=== PATIENT | male | born 1955 | race African-American/Black ===

== ENCOUNTER 2017-02-23 04:58 | Emergency (ER) | payer OTHER ==
[~2017-02-23] VITALS: Ht 167.6 cm; Wt 72.6 kg
[~2017-02-23 04:58] MED LIST: AMOX500C2 PO; HYDR118S10 PO; TRAM50TA2 PO
[2017-02-23] MEDS ORDERED: methylPREDNISolone 125 MG (Solu-MEDROL) VIAL IM STA (05:16)
[2017-02-23] MEDS ORDERED: CEFD300C3 PO (05:21)
[2017-02-23] MEDS ORDERED: METH4TAB PO (05:21)
--- NOTE | 2017-02-23 05:22 | ED EENT ---
History of Present Illness General Chief Complaint: Cough/Cold/Flu Symptoms Stated Complaint: FEVER Nursing Triage Note: SWEATY, CHILLS, RIGHT EAR PAIN Source: patient History of Present Illness Time seen by provider: 05:11 Initial Comments PT C/O RIGHT EAR PAIN -BEGAN THIS EVENING HAS HAD SUBJECTIVE CHILLS AND SWEATS/FEELING HOT NO OTHER SYMPTOMS NO HISTORY OF SIMILAR PCP--ALL MEDICAL CARE IS THROUGH CT IN [place] Allergies and Home Medications Allergies Coded Allergies: No Known Drug Allergies (Unverified , 12/27/13) Home Medications No Active Prescriptions or Reported Meds Review of Systems Constitutional: see HPI, chills, fever Eyes: No Symptoms Reported Ears: See HPI, Pain Nose: no symptoms reported Mouth: no symptoms reported Throat: no symptoms reported Respiratory: no symptoms reported Cardiovascular: no symptoms reported Gastrointestinal: no symptoms reported Musculoskeletal: no symptoms reported Skin: no symptoms reported Neurological: No Symptoms Reported Hematologic/Lymphatic: No Symptoms Reported Immunological/Allergic: no symptoms reported Past Nhutahd-Isueze-Npsqcc Hx Patient Social History Alcohol Use: Denies Use Recreational Drug Use: No Smoking Status: Former Smoker 2nd Hand Smoke Exposure: Yes Recent Foreign Travel: No Contact w/Someone Who Travel: No Recent Infectious Disease Expo: No Recent Hopitalizations: No Immunizations Up To Date Tetanus Booster (TDap): More than 5yrs Seasonal Allergies Seasonal Allergies: No Surgeries History of Surgeries: Yes (HERNIA) Surgeries: Abdominal Respiratory History of Respiratory Disorde: No Cardiovascular History of Cardiac Disorders: Yes Cardiac Disorders: Hypertension Neurological History of Neurological Disord: No Reproductive System Hx Reproductive Disorders: No Sexually Transmitted Disease: No Genitourinary History of Genitourinary Disor: No Gastrointestinal History of Gastrointestinal Di: No Musculoskeletal History of Musculoskeletal Dis: Yes Musculoskeletal Disorders: Arthritis Endocrine History of Endocrine Disorders: No HEENT History of HEENT Disorders: No Cancer History of Cancer: No Psychosocial History of Psychiatric Problem: No Integumentary History of Skin or Integumenta: No Blood Transfusions History of Blood Disorders: No Physical Exam Vital Signs Vital Sign - Last 12Hours 02/23/17 05:07 Temp 97.1 Pulse 106 Resp 18 B/P (MAP) 159/92 Pulse Ox 97 O2 Delivery Room Air General Appearance: WD/WN, no apparent distress Eyes: bilateral eye normal inspection, bilateral eye PERRL, bilateral eye EOMI Ears: right ear TM dull, right ear TM red, right ear other (EFFUSION), left ear TM normal, bilateral ear auricle normal, bilateral ear canal normal Nose: normal inspection Mouth/Throat: normal mouth inspection, pharynx normal Neck: non-tender, full range of motion, supple, normal inspection, No lymphadenopathy (R), No lymphadenopathy (L) Cardiovascular: regular rate, rhythm, no murmur Respiratory: normal breath sounds, no respiratory distress, no accessory muscle use Neurologic/Psychiatric: senior advisory II-XII nml as tested, no motor/sensory deficits, alert, normal mood/affect, oriented x 3 Skin: normal color, warm/dry Progress/Results/Core Measures Results/Orders My Orders Orders - MIKE RMA DO Rocephin 1000mg Im (02/23/17 05:30) Methylprednisolone Sod Succ (Solu-Medrol (02/23/17 05:16) Lidocaine 1% Injection (Xylocaine 1% Inj (02/23/17 05:30) Vital Signs/I&O Vital Sign - Last 12Hours 02/23/17 05:07 Temp 97.1 Pulse 106 Resp 18 B/P (MAP) 159/92 Pulse Ox 97 O2 Delivery Room Air Blood Pressure Mean: 114 Departure Impression Impression: Primary Impression: Right otitis media with effusion Disposition: HOME, SELF-CARE Condition: Stable Departure-Patient Inst. Referrals: NO,LOCAL PHYSICIAN (PCP/Family) Primary Care Physician Patient Instructions: Ear Infections (Otitis Media) (DC), Serous Otitis Media ( DC) Add. Discharge Instructions: TYLENOL AND MOTRIN NEEDED FOR PAIN OR FEVER LOTS OF CLEAR LIQUIDS CLARITIN OR ZYRTEC FOR FLUID IN EARS FOLLOW UP WITH DRJovita OF CHOICE IN 2-3 DAYS IF NO BETTER All discharge instructions reviewed with patient and/or family. Voiced understanding. Scripts Methylprednisolone (Medrol) 4 Mg Tab.ds.pk 4 MG PO UD, #1 PKG Prov: MIKE RAM DO 02/23/17 Cefdinir (Cefdinir) 300 Mg Capsule 300 MG PO BID for FOR INFECTION, #20 CAP Prov: MIKE RAM DO 02/23/17 MIKE RAM DO Feb 23, 2017 05:22
[2017-02-23] MEDS ORDERED: cefTRIAXone 1 GM (ROCEPHIN) VIAL IM ONE (05:30)
[2017-02-23] MEDS ORDERED: LIDOCAINE 1% INJ 20 ML (XYLOCAINE) VIAL INJ ONE (05:30)
[2017-02-23 05:36] VITALS: BP 159/92
== END 2017-02-23 05:36 | disposition home or self-care (01) ==
LOC: EDUNIT# 04:58 → ER 04:59
DX: H65.91 Unspecified nonsuppurative otitis media, right ear (principal); I10 Essential (primary) hypertension; M19.90 Unspecified osteoarthritis, unspecified site; Z87.891 Personal history of nicotine dependence; Z87.19 Personal history of other diseases of the digestive system
CPT/HCPCS: 99284

== ENCOUNTER 2017-02-26 19:05 | Emergency (ER) | payer OTHER ==
[~2017-02-26] VITALS: Ht 167.6 cm; Wt 74.8 kg
[~2017-02-26 19:05] MED LIST changes: +CEFD300C3 PO; +METH4TAB PO
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
[2017-02-26 19:45] LABS: BASOPHILS % (AUTO) 0 % (0-10); EOSINOPHILS # (AUTO) 0.4 10^3/uL (0.0-0.3); EOSINOPHILS % (AUTO) 3 % (0-10); LYMPHOCYTES # (AUTO) 1.2 X 10^3 (1.0-4.0); LYMPHOCYTES % (AUTO) 8 % (12-44); MEAN CORPUSCULAR HEMOGLOBIN 30 PG (25-34); MEAN CORPUSCULAR HGB CONC 34 G/DL (32-36); MEAN CORPUSCULAR VOLUME 88 FL (80-99); MEAN PLATELET VOLUME 10.8 FL (7.4-10.4); MONOCYTES # (AUTO) 0.5 X 10^3 (0.0-1.0); MONOCYTES % (AUTO) 4 % (0-12); NEUTROPHILS % (AUTO) 85 % (42-75); PLATELET COUNT 267 10^3/uL (130-400); RED BLOOD COUNT 5.26 10^6/uL (4.35-5.85); WHITE BLOOD COUNT 14.2 10^3/uL (4.3-11.0)
--- NOTE | 2017-02-26 19:47 | ED Respiratory ---
General Chief Complaint: Fever-Adult/Adol Stated Complaint: FEVER,CHILLS Source: patient, spouse Exam Limitations: no limitations History of Present Illness Time seen by provider: 19:40 Initial Comments patient presents to ER by private 8 days ago he's was at the [facility] being evaluated for a knee replacement. 2 days after that he started coming down some chills and headaches and ear pain. He presented 3 days ago to the ER and was evaluated and found to have ear infection in his right ear and was put on omnicef as well as steroids. Patient stated the steroids were making his stomach hurt so he stopped taking those yesterday as well as she took the antibiotics until today but doesn't feel it helped him at all he feels just as bad now as he did 3 days ago when he was evaluated in the ER. He also started experiencing a cough with small flecks of bright red blood in the mucus and phlegm that he got up. He has a history of hepatitis C. he has been prescribed hypertension meds but does not take any medicines at this time. He does not feel he needs anything. He took Tylenol 2 hours prior to arrival. He has malaise and body aches. Allergies and Home Medications Allergies Coded Allergies: No Known Drug Allergies (Unverified , 12/27/13) Home Medications Amoxicillin/Potassium Clav 1 Each Tablet, 1 EACH PO BID for 7 Days, #14 Ref 0 Prescribed by: SANDOVAL HUYNH on 02/26/172106 Azithromycin 250 Mg Tablet, 250 MG PO DAILY, #4 Ref 0 Prescribed by: SANDOVAL HUYNH on 02/26/172106 Cefdinir 300 Mg Capsule, 300 MG PO BID, #20 Prescribed by: MIKE RAM on 02/23/17 0521 Methylprednisolone 4 Mg Tab.ds.pk, 4 MG PO UD, #1 Prescribed by: MIKE RAM on 02/23/17 0521 Multivitamin 1 Each Tablet, 1 EACH PO DAILY, (Reported) [B/P pill from [place]] , (Reported) Constitutional: chills, diaphoresis, No dizziness, fever, malaise, No weakness , No weight gain, No weight loss EENTM: ear pain, No ear discharge, No hearing loss, No eye pain, No dental problems, No hoarseness, No mouth pain, No mouth swelling, No nose congestion, No nose pain, No throat pain, No throat swelling Respiratory: cough, hemoptysis, No orthopnea, phlegm, short of breath, No wheezing Cardiovascular: No chest pain, No edema Gastrointestinal: No abdominal pain, No constipation, No diarrhea, No nausea, No vomiting Genitourinary: No discharge, No dysuria Musculoskeletal: No back pain, No joint pain Skin: No pruritus, No rash Psychiatric/Neurological: Headache, Denies Numbness, Denies Paresthesia Past Zpuazig-Ahaoti-Qrxgkn Hx Patient Social History Alcohol Use: Rarely Uses Recreational Drug Use: No Smoking Status: Current Someday Smoker Type Used: Cigarettes (0.25 ppd) 2nd Hand Smoke Exposure: Yes Recent Foreign Travel: No Contact w/Someone Who Travel: No Recent Hopitalizations: No Immunizations Up To Date Tetanus Booster (TDap): More than 5yrs Seasonal Allergies Seasonal Allergies: No Surgeries History of Surgeries: Yes (HERNIA) Surgeries: Abdominal Respiratory History of Respiratory Disorde: No Cardiovascular History of Cardiac Disorders: Yes Cardiac Disorders: Hypertension Neurological History of Neurological Disord: No Reproductive System Hx Reproductive Disorders: No Sexually Transmitted Disease: No Genitourinary History of Genitourinary Disor: No Gastrointestinal History of Gastrointestinal Di: No Musculoskeletal History of Musculoskeletal Dis: Yes Musculoskeletal Disorders: Arthritis Endocrine History of Endocrine Disorders: No HEENT History of HEENT Disorders: No Cancer History of Cancer: No Psychosocial History of Psychiatric Problem: No Integumentary History of Skin or Integumenta: No Blood Transfusions History of Blood Disorders: No Physical Exam Vital Signs Vital Sign - Last 12Hours 02/26/17 19:08 Temp 97.7 Pulse 113 Resp 20 B/P (MAP) 129/81 Pulse Ox 93 O2 Delivery Room Air Capillary Refill : General Appearance: WD/WN, mild distress Eyes: Bilateral Eye Normal Inspection, Bilateral Eye PERRL, Bilateral Eye EOMI HEENT: PERRL/EOMI, pharynx normal, TM abnormal (R) (Mild injection, dull TM) Neck: non-tender, full range of motion, supple, normal inspection Respiratory: chest non-tender, lungs clear, normal breath sounds, no respiratory distress, no accessory muscle use Cardiovascular: normal peripheral pulses, regular rate, rhythm, no edema Gastrointestinal: normal bowel sounds, soft, No distended, No rebound, tenderness (Right upper quadrant with positive Pascal sign), hepatomegaly Extremities: non-tender, normal inspection, no pedal edema, no calf tenderness , normal capillary refill Neurologic/Psychiatric: alert, oriented x 3 Skin: normal color, warm/dry Focused Exam Evaluation Lactate Level Laboratory Tests 02/26/17 19:30: Lactic Acid Level 1.19 Lactic Acid Level Laboratory Tests Test 02/26/17 19:30 Lactic Acid Level 1.19 MMOL/L (0.50-2.00) Progress/Results/Core Measures Suspected Sepsis SIRS Temperature: Pulse: Respiratory Rate: Laboratory Tests 02/26/17 19:30: White Blood Count 14.2H Blood Pressure / Mean: Laboratory Tests 02/26/17 19:30: Lactic Acid Level 1.19 Laboratory Tests 02/26/17 19:30: Creatinine 0.98, Platelet Count 267, Total Bilirubin 0.6 Results/Orders Lab Results Laboratory Tests Test 02/26/17 19:30 Range/Units White Blood Count 14.2 H 4.3-11.0 10^3/uL Red Blood Count 5.26 4.35-5.85 10^6/uL Hemoglobin 15.7 13.3-17.7 G/DL Hematocrit 47 40-54 % Mean Corpuscular Volume 88 80-99 FL Mean Corpuscular Hemoglobin 30 25-34 PG Mean Corpuscular Hemoglobin Concent 34 32-36 G/DL Red Cell Distribution Width 13.0 10.0-14.5 % Platelet Count 267 130-400 10^3/uL Mean Platelet Volume 10.8 H 7.4-10.4 FL Neutrophils (%) (Auto) 85 H 42-75 % Lymphocytes (%) (Auto) 8 L 12-44 % Monocytes (%) (Auto) 4 0-12 % Eosinophils (%) (Auto) 3 0-10 % Basophils (%) (Auto) 0 0-10 % Neutrophils # (Auto) 12.0 H 1.8-7.8 X 10^3 Lymphocytes # (Auto) 1.2 1.0-4.0 X 10^3 Monocytes # (Auto) 0.5 0.0-1.0 X 10^3 Eosinophils # (Auto) 0.4 H 0.0-0.3 10^3/uL Basophils # (Auto) 0.0 0.0-0.1 10^3/uL Neutrophils % (Manual) 80 % Lymphocytes % (Manual) 13 % Monocytes % (Manual) 0 % Eosinophils % (Manual) 2 % Basophils % (Manual) 0 % Band Neutrophils 5 % Blood Morphology Comment NORMAL Sodium Level 140 135-145 MMOL/L Potassium Level 3.7 3.6-5.0 MMOL/L Chloride Level 99 98-107 MMOL/L Carbon Dioxide Level 29 21-32 MMOL/L Anion Gap 12 5-14 MMOL/L Blood Urea Nitrogen 13 7-18 MG/DL Creatinine 0.98 0.60-1.30 MG/DL Estimat Glomerular Filtration Rate > 60 BUN/Creatinine Ratio 13 Glucose Level 162 H 70-105 MG/DL Lactic Acid Level 1.19 0.50-2.00 MMOL/L Calcium Level 9.7 8.5-10.1 MG/DL Total Bilirubin 0.6 0.1-1.0 MG/DL Aspartate Amino Transf (AST/SGOT) 48 H 5-34 U/L Alanine Aminotransferase (ALT/SGPT) 49 0-55 U/L Alkaline Phosphatase 139 H 40-136 U/L Total Protein 7.7 6.4-8.2 GM/DL Albumin 3.3 3.2-4.5 GM/DL Lipase 14 8-78 U/L Micro Results Microbiology 02/26/17 Influenza Types A,B Antigen (OBIE) - Final, Complete My Orders Orders - SANDOVAL HUYNH Cbc With Automated Diff (02/26/17 19:33) Comprehensive Metabolic Panel (02/26/17 19:33) Lactic Acid Analyzer (02/26/17 19:33) Influenza A And B Antigens (02/26/17 19:33) Chest Pa/Lat (2 View) (02/26/17 19:43) Us Gallbladder [id number] (02/26/17 19:43) Lipase (02/26/17 19:44) Manual Differential (02/26/17 19:30) Azithromycin Tablet (Zithromax Tablet) (02/26/17 21:15) Amoxicillin/Clavulanate Tablet (Augmenti (02/26/17 21:15) Medications Given in ED Current Medications Medications Dose Ordered Sig/Delma Route Start Time Stop Time Status Last Admin Dose Admin Azithromycin 500 mg ONCE ONCE PO 02/26/17 21:15 02/26/17 21:16 02/26/17 21:13 500 MG Vital Signs/I&O Vital Sign - Last 12Hours 02/26/17 02/26/17 19:08 21:14 Temp 97.7 99.4 Pulse 113 Resp 20 B/P (MAP) 129/81 Pulse Ox 93 O2 Delivery Room Air Capillary Refill : Progress Note : Time: 20:30 Progress Note The patient is not septic however he does have evidence pneumonia on x-ray in the left upper lobe and some right perihilar inflammation. We will step up his therapy to include Augmentin and azithromycin and have him follow-up with his primary care physician this week. The pain in his right upper quadrant may be explained by chronic hepatitis as well as the mildly elevated transaminases and alk phosphatase but since he has positive for Pascal sign go ahead and obtain the ultrasound right upper quadrant. No nausea at this time. Diagnostic Imaging Diagonstic Imaging: Xray Plain Films/CT/US/NM/MRI: chest (2v) Comments [facility] [place] NAME: PA KYLE [facility] REC#: [id number] PT STATUS: REG ER : 1955 PHYSICIAN: SANDOVAL HUYNH MD ADMIT DATE: 02/26/17/ER Draft Date of Exam:02/26/17 CHEST PA/LAT (2 VIEW) EXAM: CHEST PA/LAT (2 VIEW). INDICATION: Fever. Chills. COMPARISON: None. FINDINGS: Normal heart size and pulmonary vascularity. There are diffuse airspace opacities throughout the right perihilar and left lateral mid and lower lungs. No pneumothorax or pleural effusion. No acute osseous findings. IMPRESSION: Diffuse airspace opacities involving the right perihilar and left mid and lower lungs, suspicious for pneumonitis, particularly given the clinical presentation. Recommend followup to resolution. Dictated on workstation # [id number] Dict: 02/26/171955 Trans: 02/26/171999 [id number] Interpreted by: GARY DUMAS MD Electronically signed by: Reviewed: Reviewed by Me Diagonstic Imaging: Ultrasound Plain Films/CT/US/NM/MRI: abdomen (GB) Comments Gallbladder contracted but no stone seen. No evidence of ductal dilatation or obstruction. [facility] [place] NAME[facility] REC[facility] [id number] PT STATUS: REG ER : 1955 PHYSICIAN: SANDOVAL HUYNH MD ADMIT DATE: 02/26/17/ER Draft Date of Exam:02/26/17 US GALLBLADDER [id number] PROCEDURE: US Gallbladder. TECHNIQUE: Multiple real-time grayscale images were obtained over the right upper quadrant in various projections. INDICATION: Abdominal pain. COMPARISON: None. FINDINGS: The liver is normal in echogenicity and measures up to 8.5 cm. No intrahepatic biliary ductal dilatation. Normal-appearing gallbladder with a wall measuring 0.2 cm. No pericholecystic fluid. Negative sonographic Pascal's sign. The common bile duct measures 0.5 cm. The pancreas is obscured by bowel gas. The right kidney measures 10.7 cm. No right renal cyst, mass, or hydronephrosis. No free fluid in the visualized abdomen. IMPRESSION: Negative right upper quadrant ultrasound. Dictated on workstation # [id number] Dict: 02/26/172106 Trans: 02/26/172110 [id number] Interpreted by: GARY DUMAS MD Electronically signed by: Reviewed: Reviewed by Me Departure Impression Impression: Primary Impression: Pneumonia Qualified Codes: J18.1 - Lobar pneumonia, unspecified organism Additional Impression: Otitis media, acute Qualified Codes: H65.191 - Other acute nonsuppurative otitis media, right ear Disposition: 01 HOME, SELF-CARE Condition: Stable Departure-Patient Inst. Decision time for Depature: 21:16 Referrals: NO,LOCAL PHYSICIAN (PCP/Family) Primary Care Physician Patient Instructions: Community-Acquired Pneumonia, Adult (DC) Add. Discharge Instructions: Please crop picker the antibiotics, Augmentin and azithromycin. Take the Augmentin twice a day with food and the azithromycin and take 2 tablets the first day and then every day after that take one tablet a day until its complete. Take probiotics [id number] one capsule twice a day with food to help reduce the gastrointestinal side effects accompanying antibiotics. Follow-up with your primary care physician this week before the weekend to make sure you are going the right direction and not going to need further management. Return to the ER if you're unable to manage her symptoms are you begin to have new symptoms such as shortness of breath, chest pain. If you have a fever or bodyaches you may use 500 mg Tylenol every 8 hours or ibuprofen 800 mg every 8 hours. All discharge instructions reviewed with patient and/or family. Voiced understanding. Scripts Azithromycin (Azithromycin) 250 Mg Tablet 250 MG PO DAILY, #4 TAB 0 Refills Prov: SANDOVAL HUYNH 02/26/17 Amoxicillin/Potassium Clav (Augmentin 875-125 Tablet) 1 Each Tablet 1 EACH PO BID for 7 Days, #14 TAB 0 Refills Prov: SANDOVAL HUYNH 02/26/17 Work/School Note: Work Release Form Date Seen in the Emergency Department: Feb 26, 2017 Return to Work: Mar 01, 2017 Restrictions: No Restrictions SANDOVAL HUYNH Feb 26, 2017 19:47
[2017-02-26] MEDS ORDERED: MULT-974 PO (19:49)
[2017-02-26 19:58] LABS: BAND NEUTROPHILS 5 %; BASOPHILS % (MANUAL) 0 %; EOSINOPHILS % (MANUAL) 2 %; LYMPHOCYTES % (MANUAL) 13 %; NEUTROPHILS % (MANUAL) 80 %
--- NOTE | 2017-02-26 20:00 | Diagnostic Imaging Report ---
EXAM: CHEST PA/LAT (2 VIEW). INDICATION: Fever. Chills. COMPARISON: None. FINDINGS: Normal heart size and pulmonary vascularity. There are diffuse airspace opacities throughout the right perihilar and left lateral mid and lower lungs. No pneumothorax or pleural effusion. No acute osseous findings. IMPRESSION: Diffuse airspace opacities involving the right perihilar and left mid and lower lungs, suspicious for pneumonitis, particularly given the clinical presentation. Recommend followup to resolution. Dictated by: Dictated on workstation # [id number]
[2017-02-26 20:01] LABS: ALANINE AMINOTRANSFERASE 49 U/L (0-55); ALBUMIN 3.3 GM/DL (3.2-4.5); ANION GAP 12 MMOL/L (5-14); ASPARTATE AMINO TRANSFERASE 48 U/L (5-34); BILIRUBIN,TOTAL 0.6 MG/DL (0.1-1.0); BLOOD UREA NITROGEN 13 MG/DL (7-18); BUN/CREATININE RATIO 13; CALCIUM 9.7 MG/DL (8.5-10.1); CARBON DIOXIDE 29 MMOL/L (21-32); CHLORIDE 99 MMOL/L (98-107); CREATININE SERUM 0.98 MG/DL (0.60-1.30); GFR ESTIMATED > 60; GLUCOSE 162 MG/DL (70-105); POTASSIUM 3.7 MMOL/L (3.6-5.0); SODIUM 140 MMOL/L (135-145); TOTAL PROTEIN 7.7 GM/DL (6.4-8.2)
[2017-02-26] MEDS ORDERED: AMOX-358 PO (21:07)
[2017-02-26] MEDS ORDERED: AZIT250T12 PO (21:07)
--- NOTE | 2017-02-26 21:11 | Diagnostic Imaging Report ---
PROCEDURE: US Gallbladder. TECHNIQUE: Multiple real-time grayscale images were obtained over the right upper quadrant in various projections. INDICATION: Abdominal pain. COMPARISON: None. FINDINGS: The liver is normal in echogenicity and measures up to 8.5 cm. No intrahepatic biliary ductal dilatation. Normal-appearing gallbladder with a wall measuring 0.2 cm. No pericholecystic fluid. Negative sonographic Pascal's sign. The common bile duct measures 0.5 cm. The pancreas is obscured by bowel gas. The right kidney measures 10.7 cm. No right renal cyst, mass, or hydronephrosis. No free fluid in the visualized abdomen. IMPRESSION: Negative right upper quadrant ultrasound. Dictated by: Dictated on workstation # [id number]
[2017-02-26] MEDS ORDERED: AUGMENTIN 875 MG TAB (AMOXICILLIN/CLAVULANATE) PO SCH (21:15)
[2017-02-26] MEDS ORDERED: AZITHROMYCIN 250 MG TAB (ZITHROMAX) PO ONE (21:15)
[2017-02-26 21:29] VITALS: BP 143/112
== END 2017-02-26 21:29 | disposition home or self-care (01) ==
LOC: EDUNIT# 19:05 → ER 19:06
DX: J18.9 Pneumonia, unspecified organism (principal); H66.91 Otitis media, unspecified, right ear; I10 Essential (primary) hypertension; M19.90 Unspecified osteoarthritis, unspecified site; F17.210 Nicotine dependence, cigarettes, uncomplicated; Z87.19 Personal history of other diseases of the digestive system
CPT/HCPCS: 36415; 71020; 76705; 80053; 83605; 83690; 85007; 85027; 87804

== ENCOUNTER 2017-03-01 17:32 | Inpatient (IN) | payer OTHER ==
[~2017-03-01] VITALS: Ht 167.6 cm; Wt 75.7 kg
[~2017-03-01 17:32] MED LIST changes: +AMOX-358 PO; +AZIT250T12 PO; +MULT-974 PO
[2017-03-01] MEDS ORDERED: NS IV 1000 ML 1,000 ML IV ONE (18:16)
--- NOTE | 2017-03-01 18:24 | ED General ---
General Chief Complaint: Respiratory Problems Stated Complaint: PNEUMONIA Nursing Triage Note: AMBULATED TO ROOM 03. THIRD VISIT THIS WEEK ET STATES HE DOES NOT THINK HIS PNEUMONIA IS GETTING BETTER. CONTINUES TO RUN A TEMP AND NOT FEEL WELL. STATES HE TOOK TYLENOL 650MG AND IBUPROFEN 400MG BEFORE COMING TO THE ER. Nursing Sepsis Screen: Possible Sepsis Risk Source of Information: Patient Exam Limitations: No Limitations History of Present Illness Time Seen by Provider: 18:08 Initial Comments Here with report of persistent cough, fever, chills, weakness, not feeling well and overall just drained. This is been going on for the better part of 10 days. He has been on different antibiotics and treatments and is currently on Augmentin and azithromycin. This is not helped. He is still getting fevers and chills and now short of breath and weak. Does complain of body aches. Does have history of hepatitis C this currently and evaluation. He is followed at the [facility]. Timing/Duration: 1 Week, Getting Worse Severity: Moderate Associated Systoms: No Chest Pain, Cough, Fever/Chills, Malaise, No Nausea/ Vomiting, Shortness of Air, Weakness Allergies and Home Medications Allergies Coded Allergies: No Known Drug Allergies (Unverified , 12/27/13) Home Medications Amoxicillin/Potassium Clav 1 Each Tablet, 1 EACH PO BID for 7 Days, #14 Ref 0 Prescribed by: SNADOVAL HUYNH on 02/26/172106 Azithromycin 250 Mg Tablet, 250 MG PO DAILY, #4 Ref 0 Prescribed by: SANDOVAL HUYNH on 02/26/172106 [B/P pill from [facility]] , (Reported) Constitutional: see HPI, chills, fever, malaise, No weakness EENTM: no symptoms reported Respiratory: see HPI, cough, dyspnea on exertion, wheezing Cardiovascular: No chest pain, No edema Gastrointestinal: No abdominal pain, No nausea, No vomiting Genitourinary: no symptoms reported Musculoskeletal: see HPI, No joint pain, muscle pain Skin: no symptoms reported Psychiatric/Neurological: No Symptoms Reported All Other Systems Reviewed Negative Unless Noted: Yes Past Le[place]jou-Tperuo-Caochk Hx Patient Social History Alcohol Use: Denies Use Recreational Drug Use: No Smoking Status: Former Smoker Type Used: Cigarettes Former Smoker, Quit: Feb 24, 2017 2nd Hand Smoke Exposure: Yes Recent Foreign Travel: No Contact w/Someone Who Travel: No Recent Infectious Disease Expo: No Recent Hopitalizations: No Immunizations Up To Date Tetanus Booster (TDap): More than 5yrs Seasonal Allergies Seasonal Allergies: No Surgeries History of Surgeries: Yes (HERNIA) Surgeries: Abdominal Respiratory History of Respiratory Disorde: Yes Respiratory Disorders: Pneumonia Cardiovascular History of Cardiac Disorders: Yes Cardiac Disorders: Hypertension Neurological History of Neurological Disord: No Reproductive System Hx Reproductive Disorders: No Sexually Transmitted Disease: No Genitourinary History of Genitourinary Disor: No Gastrointestinal History of Gastrointestinal Di: No Musculoskeletal History of Musculoskeletal Dis: Yes Musculoskeletal Disorders: Arthritis Endocrine History of Endocrine Disorders: No HEENT History of HEENT Disorders: No Cancer History of Cancer: No Psychosocial History of Psychiatric Problem: No Integumentary History of Skin or Integumenta: No Blood Transfusions History of Blood Disorders: No Reviewed Nursing Assessment Reviewed/Agree w Nursing PMH: Yes Family Medical History Significant Family History: No Pertinent Family Hx Physical Exam-Suspected Sepsis Physical Exam Vital Signs Vital Sign - Last 12Hours 03/01/17 17:55 Temp 98.3 Pulse 103 Resp 18 B/P (MAP) 150/95 Pulse Ox 92 Capillary Refill : Less Than 3 Seconds Blood Pressure Mean: 113 General Appearance: WD/WN, Mild Distress (appears ill) HEENT: PERRL/EOMI, Pharynx Normal Neck: Non Tender, Supple Respiratory: Crackles (right-sided few scattered), No Wheezing Cardiovascular: No Murmur, Tachycardia Gastrointestinal: Non Tender, Soft Back: Normal Inspection, No CVA Tenderness, No Vertebral Tenderness Extremity: Normal Range of Motion, Non Tender Neurologic/Psychiatric: Alert, Oriented x3 Skin: normal color, damp, other (skin warm to touch overall) Focused Exam Evaluation Lactate Level Laboratory Tests 03/01/17 18:17: Lactic Acid Level 0.84 Lactic Acid Level Laboratory Tests Test 03/01/17 18:17 Lactic Acid Level 0.84 MMOL/L (0.50-2.00) Progress/Results/Core Measures Suspected Sepsis Recent Fever Within 48 Hours: Yes Infection Criteria Present: Documented Infection New/Unexplained Altered Menta: No Sepsis Screen: Possible Sepsis Risk Sepsis Diagnosis: SIRS Temperature:98.3 Pulse: 103 Respiratory Rate: 18 Laboratory Tests 03/01/17 18:17: White Blood Count 12.0H Blood Pressure 150 /95 Mean: 113 Laboratory Tests 11/24/17 18:17: Lactic Acid Level 0.84 Laboratory Tests 03/01/17 18:17: Creatinine 0.79, INR Comment 1.0, Platelet Count 315, Total Bilirubin 0.4 Results/Orders Lab Results Laboratory Tests Test 03/01/17 18:17 03/01/17 18:44 Range/Units White Blood Count 12.0 H 4.3-11.0 10^3/uL Red Blood Count 4.83 4.35-5.85 10^6/uL Hemoglobin 14.3 13.3-17.7 G/DL Hematocrit 43 40-54 % Mean Corpuscular Volume 88 80-99 FL Mean Corpuscular Hemoglobin 30 25-34 PG Mean Corpuscular Hemoglobin Concent 34 32-36 G/DL Red Cell Distribution Width 13.1 10.0-14.5 % Platelet Count 315 130-400 10^3/uL Mean Platelet Volume 10.3 7.4-10.4 FL Neutrophils (%) (Auto) 73 42-75 % Lymphocytes (%) (Auto) 16 12-44 % Monocytes (%) (Auto) 9 0-12 % Eosinophils (%) (Auto) 2 0-10 % Basophils (%) (Auto) 0 0-10 % Neutrophils # (Auto) 8.7 H 1.8-7.8 X 10^3 Lymphocytes # (Auto) 1.9 1.0-4.0 X 10^3 Monocytes # (Auto) 1.1 H 0.0-1.0 X 10^3 Eosinophils # (Auto) 0.3 0.0-0.3 10^3/uL Basophils # (Auto) 0.0 0.0-0.1 10^3/uL Prothrombin Time 13.0 12.2-14.7 SEC INR Comment 1.0 0.8-1.4 Activated Partial Thromboplast Time 35 24-35 SEC Sodium Level 139 135-145 MMOL/L Potassium Level 4.0 3.6-5.0 MMOL/L Chloride Level 102 98-107 MMOL/L Carbon Dioxide Level 25 21-32 MMOL/L Anion Gap 12 5-14 MMOL/L Blood Urea Nitrogen 12 7-18 MG/DL Creatinine 0.79 0.60-1.30 MG/DL Estimat Glomerular Filtration Rate > 60 BUN/Creatinine Ratio 15 Glucose Level 99 70-105 MG/DL Lactic Acid Level 0.84 0.50-2.00 MMOL/L Calcium Level 9.3 8.5-10.1 MG/DL Total Bilirubin 0.4 0.1-1.0 MG/DL Aspartate Amino Transf (AST/SGOT) 45 H 5-34 U/L Alanine Aminotransferase (ALT/SGPT) 48 0-55 U/L Alkaline Phosphatase 144 H 40-136 U/L Total Protein 7.5 6.4-8.2 GM/DL Albumin 3.2 3.2-4.5 GM/DL Urine Color YELLOW Urine Clarity CLEAR Urine pH 7 5-9 Urine Specific [place] 1.010 L 1.016-1.022 Urine Protein 3+ H NEGATIVE Urine Glucose (UA) NEGATIVE NEGATIVE Urine Ketones NEGATIVE NEGATIVE Urine Nitrite NEGATIVE NEGATIVE Urine Bilirubin NEGATIVE NEGATIVE Urine Urobilinogen 8 H NORMAL MG/DL Urine Leukocyte Esterase 1+ H NEGATIVE Urine RBC (Auto) 1+ H NEGATIVE Urine RBC 0-2 /HPF Urine WBC 0-2 /HPF Urine Crystals NONE /LPF Urine Bacteria NONE /HPF Urine Casts NONE /LPF Urine Mucus NEGATIVE /LPF Urine Culture Indicated NO Micro Results Microbiology 03/01/17 Influenza Types A,B Antigen (OBIE) - Final, Complete My Orders Orders - DANITZA ROBBINS MD Cbc With Automated Diff (03/01/17 18:16) Comprehensive Metabolic Panel (03/01/17 18:16) Lactic Acid Analyzer (03/01/17 18:16) Blood Culture (03/01/17 18:16) Sputum Culture (03/01/17 18:16) Ua Culture If Indicated (03/01/17 18:16) Protime With Inr (03/01/17 18:16) Partial Thromboplastin Time (03/01/17 18:16) Chest 1 View, Ap/Pa Only (03/01/17 18:16) O2 (03/01/17 18:16) Saline Lock/Iv-Start (03/01/17 18:16) Saline Lock/Iv-Start (03/01/17 18:16) Vital Signs Adult Sepsis Patie Q1H (03/01/17 18:16) Remove Rings In Anticipation O (03/01/17 18:16) Influenza A And B Antigens (03/01/17 18:16) Ns Iv 1000 Ml (Sodium Chloride 0.9%) (03/01/17 18:16) Piperacillin Sodium/Tazobactam (Zosyn Vi (03/01/17 19:30) General/Regular (03/01/17 Dinner) Medications Given in ED Current Medications Medications Dose Ordered Sig/Delma Route Start Time Stop Time Status Last Admin Dose Admin Sodium Chloride 1,000 ml @ 0 mls/hr Q0M ONCE IV 03/01/17 18:16 03/01/17 18:18 DC 03/01/17 18:24 1,000 MLS/HR Vital Signs/I&O Vital Sign - Last 12Hours 03/01/17 17:55 Temp 98.3 Pulse 103 Resp 18 B/P (MAP) 150/95 Pulse Ox 92 Capillary Refill : Less Than 3 Seconds Blood Pressure Mean: 113 Progress Note : Progress Note Seen and evaluated. Concerns for unrelenting pneumonia and sepsis. Sepsis order set initiated. Patient has been on a variety of antibiotics over the last week. He is not getting better and still having fevers. There was concern about pneumonia on the previous visit on the . We will reevaluate. Also reevaluate influenza screen was patient is not getting better with antibiotics. Monitor patient. 1915: I reviewed the labs and chest x-ray. He has bibasilar pneumonia that appears to be worse from previous. He is failing outpatient treatment. I did discuss the case with Dr. Weber. She accepts patient for admission, inpatient status. We did discuss the pneumonia and its resistance to the outpatient medicines. 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 We will double cover him on antibiotics to include coverage for this. Zosyn 4.5 g IV initiated. We will also add Levaquin. Admit, inpatient status. Patient agrees with plan. Diagnostic Imaging Diagonstic Imaging: Xray Plain Films/CT/US/NM/MRI: chest Comments VIA [facility] [place] NAME: PA KYLE [facility] REC#: [id number] PT STATUS: REG ER : 1955 PHYSICIAN: DANITZA ROBBINS MD ADMIT DATE: 03/01/17/ER Draft Date of Exam:03/01/17 CHEST 1 VIEW, AP/PA ONLY CLINICAL INDICATION: Patient with cough, shortness of breath, and fever. EXAM: Portable chest x-ray upright view. COMPARISONS: Chest x-ray dated 02/26/2017. FINDINGS: Lungs/pleura: Slight increased density of the airspace opacities in the left midlung field, left lung base and small amount in the right perihilar region concerning for pneumonia. There is no pneumothorax. There is no pleural effusion. Mediastinum: Unremarkable. Pulmonary vasculature: Unremarkable. Heart: Unremarkable. Bones/extrathoracic soft tissue: Unremarkable. IMPRESSION: Interval progression of left lung and right perihilar infiltrate/pneumonia. Dictated on workstation # [id number] Dict: 03/01/17 1826 Trans: 03/01/17 1834 [facility] [id number] Interpreted by: ESTRELLA ALMODOVAR MD Electronically signed by: Departure Communication (Admissions) Time/Spoke to Admitting Phy: 19:16 Impression Impression: Primary Impression: Bilateral pneumonia Qualified Codes: J18.9 - Pneumonia, unspecified organism Disposition: ADMITTED INPATIENT Condition: Stable Admissions Decision to Admit Reason: Admit from ER (General) Decision to Admit/Date: Mar 01, 2017 Time/Decision to Admit Time: 19:16 Departure-Patient Inst. Referrals: NO,LOCAL PHYSICIAN (PCP/Family) Primary Care Physician DANITZA ROBBINS MD Mar 01, 2017 18:24
[2017-03-01 18:26] LABS: BASOPHILS % (AUTO) 0 % (0-10); EOSINOPHILS # (AUTO) 0.3 10^3/uL (0.0-0.3); EOSINOPHILS % (AUTO) 2 % (0-10); LYMPHOCYTES # (AUTO) 1.9 X 10^3 (1.0-4.0); LYMPHOCYTES % (AUTO) 16 % (12-44); MEAN CORPUSCULAR HEMOGLOBIN 30 PG (25-34); MEAN CORPUSCULAR HGB CONC 34 G/DL (32-36); MEAN CORPUSCULAR VOLUME 88 FL (80-99); MEAN PLATELET VOLUME 10.3 FL (7.4-10.4); MONOCYTES # (AUTO) 1.1 X 10^3 (0.0-1.0); MONOCYTES % (AUTO) 9 % (0-12); NEUTROPHILS # (AUTO) 8.7 X 10^3 (1.8-7.8); NEUTROPHILS % (AUTO) 73 % (42-75); PLATELET COUNT 315 10^3/uL (130-400); RED BLOOD COUNT 4.83 10^6/uL (4.35-5.85); RED CELL DISTRIBUTION WIDTH 13.1 % (10.0-14.5)
--- NOTE | 2017-03-01 18:34 | Diagnostic Imaging Report ---
CLINICAL INDICATION: Patient with cough, shortness of breath, and fever. EXAM: Portable chest x-ray upright view. COMPARISONS: Chest x-ray dated 02/26/2017. FINDINGS: Lungs/pleura: Slight increased density of the airspace opacities in the left midlung field, left lung base and small amount in the right perihilar region concerning for pneumonia. There is no pneumothorax. There is no pleural effusion. Mediastinum: Unremarkable. Pulmonary vasculature: Unremarkable. Heart: Unremarkable. Bones/extrathoracic soft tissue: Unremarkable. IMPRESSION: Interval progression of left lung and right perihilar infiltrate/pneumonia. Dictated by: Dictated on workstation # [id number]
[2017-03-01 18:46] LABS: ALANINE AMINOTRANSFERASE 48 U/L (0-55); ALBUMIN 3.2 GM/DL (3.2-4.5); ANION GAP 12 MMOL/L (5-14); ASPARTATE AMINO TRANSFERASE 45 U/L (5-34); BILIRUBIN,TOTAL 0.4 MG/DL (0.1-1.0); BLOOD UREA NITROGEN 12 MG/DL (7-18); BUN/CREATININE RATIO 15; CALCIUM 9.3 MG/DL (8.5-10.1); CARBON DIOXIDE 25 MMOL/L (21-32); CHLORIDE 102 MMOL/L (98-107); CREATININE SERUM 0.79 MG/DL (0.60-1.30); GFR ESTIMATED > 60; GLUCOSE 99 MG/DL (70-105); SODIUM 139 MMOL/L (135-145); TOTAL PROTEIN 7.5 GM/DL (6.4-8.2)
[2017-03-01 18:50] LABS: BILIRUBIN,URINE NEGATIVE (NEGATIVE); KETONES,URINE NEGATIVE (NEGATIVE); LEUKOCYTE ESTERASE ,URINE 1+ (NEGATIVE); NITRITE,URINE NEGATIVE (NEGATIVE); PH,URINE 7 (5-9); PROTEIN,URINE 3+ (NEGATIVE); UROBILINOGEN,URINE 8 MG/DL (NORMAL)
[2017-03-01 18:58] LABS: WBC,URINE 0-2 /HPF
[2017-03-01] MEDS ORDERED: NS (IVPB) 100 ML ONE (19:28)
[2017-03-01] MEDS ORDERED: PIPERACILLIN/TAZO 4.5 GM VIAL (ZOSYN) IV ONE (19:30)
[2017-03-01 20:20] VITALS: BP 166/88
[2017-03-01] MEDS ORDERED: LEVOFLOXACIN 750 MG/150 ML IV 150 ML IV ONE (20:46)
[2017-03-01] MEDS ORDERED: NS IV 1000 ML 1,000 ML ONE (20:46)
[2017-03-01] MEDS ORDERED: IBUPROFEN 600 MG (MOTRIN) TAB PO PRN (21:30)
[2017-03-01] MEDS ORDERED: CATHETER FLUSH 10 ML SYR IV PRN (21:30)
[2017-03-01] MEDS: NS IV 1000 ML 1,000 ML IV SCH (21:31)
[2017-03-01] MEDS: CATHETER FLUSH 10 ML SYR IV SCH (21:33)
[2017-03-01 23:11] VITALS: BP 147/93
[2017-03-01 23:36] VITALS: BP 150/95
[2017-03-02] MEDS ORDERED: RT-ALBUTEROL SULF 2.5 MG/3 ML PRE-MIX VIAL IH PRN
[2017-03-02] MEDS: PIPERACILLIN/TAZOBACTAM 4.5 GM/NS100 ML IVPB IV SCH ×6 (00:42→17:54)
[2017-03-02] MEDS: ACETAMINOPHEN 325 MG TABLET/CAPLET (TYLENOL) PO PRN ×2 (02:57→13:12)
[2017-03-02] MEDS: CATHETER FLUSH 10 ML SYR IV SCH ×3 (03:18→21:49)
[2017-03-02 04:00] VITALS: BP 148/92
[2017-03-02] MEDS: NS IV 1000 ML 1,000 ML IV SCH ×2 (05:02→14:30)
[2017-03-02 06:11] LABS: BASOPHILS % (AUTO) 0 % (0-10); EOSINOPHILS # (AUTO) 0.2 10^3/uL (0.0-0.3); EOSINOPHILS % (AUTO) 2 % (0-10); LYMPHOCYTES # (AUTO) 1.7 X 10^3 (1.0-4.0); LYMPHOCYTES % (AUTO) 14 % (12-44); MEAN CORPUSCULAR HEMOGLOBIN 30 PG (25-34); MEAN CORPUSCULAR HGB CONC 33 G/DL (32-36); MEAN CORPUSCULAR VOLUME 89 FL (80-99); MEAN PLATELET VOLUME 10.3 FL (7.4-10.4); MONOCYTES % (AUTO) 8 % (0-12); NEUTROPHILS # (AUTO) 8.9 X 10^3 (1.8-7.8); NEUTROPHILS % (AUTO) 76 % (42-75); PLATELET COUNT 273 10^3/uL (130-400); RED BLOOD COUNT 4.73 10^6/uL (4.35-5.85); WHITE BLOOD COUNT 11.8 10^3/uL (4.3-11.0)
[2017-03-02 06:34] LABS: ALANINE AMINOTRANSFERASE 42 U/L (0-55); ALBUMIN 2.9 GM/DL (3.2-4.5); ANION GAP 10 MMOL/L (5-14); ASPARTATE AMINO TRANSFERASE 39 U/L (5-34); BILIRUBIN,TOTAL 0.6 MG/DL (0.1-1.0); BLOOD UREA NITROGEN 11 MG/DL (7-18); BUN/CREATININE RATIO 13; CARBON DIOXIDE 25 MMOL/L (21-32); CHLORIDE 103 MMOL/L (98-107); CREATININE SERUM 0.83 MG/DL (0.60-1.30); GFR ESTIMATED > 60; GLUCOSE 134 MG/DL (70-105); POTASSIUM 4.2 MMOL/L (3.6-5.0); SODIUM 138 MMOL/L (135-145)
[2017-03-02] MEDS: RT-ALBUTEROL/IPRATROPIUM 3 ML (DUONEB) VIAL INH SCH ×4 (07:07→18:38)
[2017-03-02 08:00] VITALS: BP 136/85
[2017-03-02] MEDS ORDERED: INFLUENZA TRIvalent 2017-2018 0.5 ML/45 MCG SYR IM ONE (08:00)
--- NOTE | 2017-03-02 08:52 | History & Physical-Hospitalist ---
HPI History of Present Illness: HPI/Chief Complaint Pt is a 61yoAAM with a PMH of Hep C and HTN who presented to the ER for worsening SOB and cough after being seen and treated for pna earlier this week. His symptoms started on 02/19 when he was in [place] for work. 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 He continued to work throughout the week and when he arrived back home to [place] he came to the ER (02/23). He was told he had a "double ear infection" and was given abx and steroids and DC home. He returned to work but continued to get worse so returned to the ER on 02/26 and was diagnosed with pneumonia. He was treated with Augmentin and Azithromycin. He continued to have a cough and developed worsening shortness of breath along with fevers and sweats/chill prompting him to return to the ER last night. CXR revealed progression of his pneumonia and he was admitted for IV abx. Source: patient Date Seen 03/02/17 Time Seen by Provider: 08:40 Attending Physician Angelo Weber MD PCP No,Local Physician Referring Physician Date of Admission Mar 01, 2017 at 19:30 Home Medications & Allergies Home Medications Reviewed patient Home Medication Reconciliation Form Allergies Allergies Coded Allergies No Known Drug Allergies (Unverified12/27/13) Past Fmamksa-Guhyhe-Pfnmck Hx Patient Social History Marrital Status: Alcohol Use: Denies Use Recreational Drug Use: No Smoking Status: Former Smoker Former Smoker, Quit: Feb 24, 2017 Type Used: Cigarettes 2nd Hand Smoke Exposure: Yes Physical Abuse Screen: No Sexual Abuse: No Recent Foreign Travel: No Contact w/other who traveled: No Recent Hopitalizations: No Recent Infectious Disease Expo: No Immunizations Up To Date Tetanus Booster (TDap): More than 5yrs Seasonal Allergies Seasonal Allergies: No Surgeries Yes (HERNIA) Abdominal Respiratory Yes Cardiovascular Yes Hypertension Neurological No Reproductive System Hx Reproductive Disorders: No Sexually Transmitted Disease: No Genitourinary No Gastrointestinal Yes Hepatitis (Hep C) Musculoskeletal Yes Arthritis Endocrine History of Endocrine Disorders: No HEENT History of HEENT Disorders: No Cancer No Psychosocial History of Psychiatric Problem: No Integumentary History of Skin or Integumenta: No Blood Transfusions History of Blood Disorders: No Reviewed Nursing Assessment Reviewed/Agree w Nursing PMH: Yes Family Medical History Significant Family History: Cancer Review of Systems Constitutional: chills, diaphoresis, fever EENTM: ear pain, No blurred vision, No double vision Respiratory: see HPI, cough, No phlegm, short of breath Cardiovascular: No chest pain, No edema, No palpitations Gastrointestinal: No abdominal pain, No constipation, No diarrhea, No nausea, No vomiting Genitourinary: No dysuria, No frequency Musculoskeletal: No joint pain, No muscle pain Skin: No lesions, No rash Psychiatric/Neurological: Headache, Denies Numbness, Denies Tingling Physical Exam Physical Exam Vital Signs Vital Sign - Last 12Hours 03/01/17 03/01/17 17:55 20:00 Temp 98.3 Pulse 103 Resp 18 B/P (MAP) 150/95 Pulse Ox 92 O2 Delivery Room Air Capillary Refill : Less Than 3 Seconds General Appearance: No Apparent Distress, WD/WN HEENT: PERRL/EOMI, Moist Mucous Membranes Neck: Non Tender, Supple Respiratory: Lungs Clear, No Respiratory Distress Cardiovascular: Regular Rate, Rhythm, No Murmur Gastrointestinal: Normal Bowel Sounds, Non Tender, Soft Extremity: Normal Capillary Refill, No Calf Tenderness Neurologic/Psychiatric: Alert, Oriented x3, Normal Mood/Affect Skin: Normal Color, Warm/Dry Results Results/Procedures Lab Laboratory Tests 03/01/17 18:17 03/02/17 05:45 Radiology CXR IMPRESSION: Interval progression of left lung and right perihilar infiltrate/pneumonia. Assessment/Plan Admission Diagnosis CAP Diagnosis/Problems Diagnosis/Problems (1) Sepsis Status: Acute Assessment & Plan: Febrile with tachycardia and leukocytosis PNA on CXR 3/4 SIRS with infection- sepsis no end organ involvement or lactic acidosis Not sever sepsis- no need for 30cc/kg fluids Continue Levaquin and Zosyn for 48 hours then plan to deescalate when cultures available Blood cultures drawn in ED Sputum culture pending Added Urine strep pna and legionella antigen Qualifiers: Qualified Codes: A41.9 - Sepsis, unspecified organism (2) Bilateral pneumonia Status: Acute Assessment & Plan: Reviewed CXR images from 02/26 and 03/01 Worsening pna bilaterally Continue IV abx as above High risk for atypical (especially legionella) given his job Qualifiers: Qualified Codes: J18.9 - Pneumonia, unspecified organism (3) Essential (primary) hypertension Status: Chronic Assessment & Plan: Was prescribed medications but has not started as an outpatient as his BP has been "good" per pt BP trending down Will trend and start antihypertensives if needed (4) Hepatitis C Status: Chronic Assessment & Plan: [facility] (?[facility]ig[facility]to) following knee replacement next month Qualifiers: Qualified Codes: B18.2 - Chronic viral hepatitis C (5) Hyperglycemia Status: Acute Assessment & Plan: Fasting 134 this AM Will check a1c (6) Prophylactic measure Assessment & Plan: Lovenox NS at 100ml/hrs Heart Healthy diet Clinical Quality Measures DVT/VTE Risk/Contraindication: Risk Factor Score Per Nursin RFS Level Per Nursing on Admit: 3=High ANGELO WEBER MD Mar 02, 2017 08:52
[2017-03-02] MEDS: ENOXAPARIN 40 MG/0.4 ML (LOVENOX) SYR SC SCH (09:21)
[2017-03-02 12:00] VITALS: BP 168/84
[2017-03-02 15:29] VITALS: BP 148/82
[2017-03-02 20:34] VITALS: BP 141/87
[2017-03-02] MEDS: LEVOFLOXACIN 750 MG/D5W 150 ML PRE-MIX IV SCH (21:59)
[2017-03-02 23:35] VITALS: BP 133/93
[2017-03-03] MEDS: PIPERACILLIN/TAZOBACTAM 4.5 GM/NS100 ML IVPB IV SCH ×6 (01:17→17:03)
[2017-03-03] MEDS: NS IV 1000 ML 1,000 ML IV SCH ×3 (02:11→23:49)
[2017-03-03] MEDS: CATHETER FLUSH 10 ML SYR IV SCH ×3 (04:18→21:45)
[2017-03-03 05:59] LABS: BASOPHILS % (AUTO) 0 % (0-10); EOSINOPHILS # (AUTO) 0.2 10^3/uL (0.0-0.3); EOSINOPHILS % (AUTO) 2 % (0-10); LYMPHOCYTES # (AUTO) 1.6 X 10^3 (1.0-4.0); LYMPHOCYTES % (AUTO) 16 % (12-44); MEAN CORPUSCULAR HEMOGLOBIN 30 PG (25-34); MEAN CORPUSCULAR HGB CONC 33 G/DL (32-36); MEAN CORPUSCULAR VOLUME 90 FL (80-99); MEAN PLATELET VOLUME 10.6 FL (7.4-10.4); MONOCYTES % (AUTO) 10 % (0-12); NEUTROPHILS # (AUTO) 6.9 X 10^3 (1.8-7.8); NEUTROPHILS % (AUTO) 71 % (42-75); PLATELET COUNT 295 10^3/uL (130-400); RED BLOOD COUNT 4.48 10^6/uL (4.35-5.85); RED CELL DISTRIBUTION WIDTH 13.1 % (10.0-14.5); WHITE BLOOD COUNT 9.7 10^3/uL (4.3-11.0)
[2017-03-03] MEDS: RT-ALBUTEROL/IPRATROPIUM 3 ML (DUONEB) VIAL INH SCH ×4 (06:15→19:23)
[2017-03-03 06:19] LABS: ANION GAP 9 MMOL/L (5-14); BLOOD UREA NITROGEN 13 MG/DL (7-18); BUN/CREATININE RATIO 16; CALCIUM 8.8 MG/DL (8.5-10.1); CARBON DIOXIDE 25 MMOL/L (21-32); CHLORIDE 107 MMOL/L (98-107); GFR ESTIMATED > 60; GLUCOSE 128 MG/DL (70-105); POTASSIUM 3.9 MMOL/L (3.6-5.0); SODIUM 141 MMOL/L (135-145)
[2017-03-03 08:00] VITALS: BP 152/80
[2017-03-03] MEDS: ENOXAPARIN 40 MG/0.4 ML (LOVENOX) SYR SC SCH (09:38)
[2017-03-03] MEDS ORDERED: LISI10TA2 PO (10:42)
[2017-03-03] MEDS ORDERED: LEVO750T9 PO (10:42)
[2017-03-03] MEDS: lisINopril 10 MG (PRINIVIL) TAB PO SCH (10:57)
--- NOTE | 2017-03-03 11:29 | Discharge Summary-Hospitalist ---
Diagnosis/Chief Complaint Date of Admission Mar 01, 2017 at 19:30 Date of Discharge Admission Diagnosis CAP Discharge Diagnosis CAP (1) Bilateral pneumonia Status: Acute Assessment & Plan: Reviewed CXR images from 02/26 and 03/01 Worsening pna bilaterally Continue abx as above High risk for atypical (especially legionella) given his job urine antigen pending Underwent home oxygen testing and needs 3lpms, will DC home tomorrow with oxygen rx (2) Sepsis Status: Resolved Assessment & Plan: Febrile with tachycardia and leukocytosis on admission but now resolved PNA on CXR Continued Levaquin and Zosyn until day 2 of admission Transition ot oral Levaquin at discharge to complete 7 day course Blood cultures negative Urine strep pna and legionella antigen- pending at DC (3) Essential (primary) hypertension Status: Chronic Assessment & Plan: Was prescribed medications but has not started as an outpatient as his BP has been "good" per pt BP remains elevated, proteinuria noted on UA as well Will start Lisinopril (4) Hepatitis C Status: Chronic Assessment & Plan: Follows with [facility] Plans to get treatment (?Rigoberto) following knee replacement next month (5) Hyperglycemia Status: Acute Assessment & Plan: Fasting 134 this AM Will check a1c (6) Tobacco dependence Assessment & Plan: Reports quit smoking 1 week ago Encouraged continued cessation and discussed increase cough common during this time period (7) Prophylactic measure Assessment & Plan: Lovenox Saline Lock Heart Healthy diet Discharge Summary Discharge Physical Examination Allergies: Coded Allergies: No Known Drug Allergies (Unverified , 12/27/13) Vitals & I&Os Vital Signs Date Time Temp Pulse Resp B/P (MAP) Pulse Ox O2 Delivery O2 Flow Rate FiO2 03/04/17 09:00 96 Room Air 03/04/17 08:00 97.2 112 22 146/92 Hospital Course Pt presented to the ER for third time in 1 week and found to have worsening pneumonia despite adherence to outpatient treatment for CAP. He was admitted for IV abx and responded well. Blood cultures were negative. Ambulatory oxygen testing was done and revealed a need for 3lpm. He will be DC home on Saturday with home oxygen. He will discharge to complete a 7 day course of Levaquin. Labs (last 24 hrs) Microbiology 03/01/17 Blood Culture - Preliminary, Resulted No growth 03/01/17 Influenza Types A,B Antigen (OBIE) - Final, Complete Pending Labs Discharge Home Medications: Active Scripts Active Levaquin (Levofloxacin) 750 Mg Tablet 750 Mg PO DAILY Lisinopril 10 Mg Tablet 10 Mg PO DAILY Azithromycin 250 Mg Tablet 250 Mg PO DAILY Augmentin 875-125 Tablet (Amoxicillin/Potassium Clav) 1 Each Tablet 1 Each PO BID 7 Days Reported [[facility]] Instructions to patient/family Please see electronic discharge instructions given to patient. Clinical Quality Measures DVT/VTE Risk/Contraindication: Risk Factor Score Per Nursin RFS Level Per Nursing on Admit: 3=High Sepsis: Within 3hrs of presentation: Admin ABX, Blood cultures prior to ABX's, D/C Instructions given to patient Smoking Cessation Counseling: Counseling-Symptomatic: 3-10 Minutes Problem Qualifiers (1) Bilateral pneumonia: Pneumonia type: due to unspecified organism Lung location: unspecified part of lung Qualified Codes: J18.9 - Pneumonia, unspecified organism (2) Sepsis: Sepsis type: sepsis due to unspecified organism Qualified Codes: A41.9 - Sepsis, unspecified organism (3) Hepatitis C: Viral hepatitis chronicity: chronic Hepatic coma status: without hepatic coma Qualified Codes: B18.2 - Chronic viral hepatitis C ANGELO LYNCH MD Mar 03, 2017 11:29
[2017-03-03] MEDS: ACETAMINOPHEN 325 MG TABLET/CAPLET (TYLENOL) PO PRN ×2 (14:14→21:39)
[2017-03-03 15:45] VITALS: BP 145/83
[2017-03-03] MEDS: LEVOFLOXACIN 750 MG/D5W 150 ML PRE-MIX IV SCH (21:24)
[2017-03-04 00:36] VITALS: BP 138/80
[2017-03-04] MEDS: PIPERACILLIN/TAZOBACTAM 4.5 GM/NS100 ML IVPB IV SCH ×4 (01:34→08:15)
[2017-03-04] MEDS: CATHETER FLUSH 10 ML SYR IV SCH ×2 (05:24→13:34)
[2017-03-04] MEDS: RT-ALBUTEROL/IPRATROPIUM 3 ML (DUONEB) VIAL INH SCH ×2 (06:49→10:16)
[2017-03-04 07:07] LABS: LEGIONELLA PNEU ANTIGEN URINE Negative; STREP PNEUMOCOCCUS ANTIG Negative
[2017-03-04 08:00] VITALS: BP_SYST 126; BP_SYST 146; BP_DIAS 85; BP_DIAS 92
[2017-03-04] MEDS: lisINopril 10 MG (PRINIVIL) TAB PO SCH (08:14)
[2017-03-04] MEDS: NS IV 1000 ML 1,000 ML IV SCH (08:15)
[2017-03-04] MEDS: ENOXAPARIN 40 MG/0.4 ML (LOVENOX) SYR SC SCH (08:15)
[2017-03-04] MEDS: ACETAMINOPHEN 325 MG TABLET/CAPLET (TYLENOL) PO PRN (08:16)
--- NOTE | 2017-03-04 13:21 | Progress Note-Hospitalist ---
Standard Progress Note Progress Notes/Assess & Plan Date Seen 03/04/17 Time Seen by Provider: 13:18 Diagnosis CAP Assess & Plan/Chief Complaint The patient reports that he is feeling much better. His home O2 evaluation l has been repeated and his SaO2's while exercising were all greater than 90 percent. He reports he has no symptoms of dyspnea. Dr. Weber has previously posted his discharge instructions. Physical exam: He is polite and appears robust. Lungs are clear to auscultation. CV is regular without murmur. Extremities showed no pedal edema. Impression: Community-acquired pneumonia Plan: Discharge to complete Rx with Levaquin by mouth. He is advised that he may keep his dental appointment on Saturday. He has a total knee scheduled at the [facility] for March 26. He is advised that he should contact them on discharge so that he might reschedule if they deemed necessary Labs Laboratory Tests 03/03/17 05:10 DEVI VELA MD Mar 04, 2017 13:21
[2017-03-04 14:00] VITALS: BP 146/92
[2017-03-04] MEDS ORDERED: LEVOFLOXACIN 750 MG TAB (LEVAQUIN) PO SCH (21:00)
== END 2017-03-04 14:00 | disposition home or self-care (01) | DRG 871 ==
LOC: EDUNIT# 17:32 → ER 17:33 → 4TH 19:30
PROVIDERS: ADMIT Family Medicine; ATTEND Family Medicine
DX: A41.9 Sepsis, unspecified organism (principal); J18.9 Pneumonia, unspecified organism; I10 Essential (primary) hypertension; R73.9 Hyperglycemia, unspecified; B18.2 Chronic viral hepatitis C; M19.91 Primary osteoarthritis, unspecified site; F17.210 Nicotine dependence, cigarettes, uncomplicated
CPT/HCPCS: 36415; 71010; 80048; 80053; 81000; 83036; 83605; 85025; 85610; 85730; 87040; 87449; 87804; 87899; 93005; 94640; 94664; 94760; 94761

== ENCOUNTER 2017-03-29 03:55 | Emergency (ER) | payer OTHER ==
[~2017-03-29] VITALS: Ht 177.8 cm; Wt 72.6 kg
[~2017-03-29 03:55] MED LIST changes: +LEVO750T9 PO; +LISI10TA2 PO
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
[2017-03-29] MEDS ORDERED: PIPERACILLIN SODIUM/TAZOBACTAM 4.5 GM in NS (IVPB) 100 ML IV ONE (04:30)
[2017-03-29] MEDS ORDERED: morphine INJ 10 MG/ML 1ML (SYR OR VIAL) IVP ONE ×2 (04:30→05:15)
[2017-03-29 04:31] LABS: BASOPHILS % (AUTO) 0 % (0-10); EOSINOPHILS # (AUTO) 0.4 10^3/uL (0.0-0.3); EOSINOPHILS % (AUTO) 4 % (0-10); LYMPHOCYTES # (AUTO) 3.5 X 10^3 (1.0-4.0); LYMPHOCYTES % (AUTO) 28 % (12-44); MEAN CORPUSCULAR HEMOGLOBIN 30 PG (25-34); MEAN CORPUSCULAR HGB CONC 34 G/DL (32-36); MEAN CORPUSCULAR VOLUME 88 FL (80-99); MEAN PLATELET VOLUME 11.3 FL (7.4-10.4); MONOCYTES # (AUTO) 1.6 X 10^3 (0.0-1.0); MONOCYTES % (AUTO) 13 % (0-12); NEUTROPHILS # (AUTO) 6.8 X 10^3 (1.8-7.8); NEUTROPHILS % (AUTO) 55 % (42-75); PLATELET COUNT 160 10^3/uL (130-400); RED BLOOD COUNT 4.12 10^6/uL (4.35-5.85); RED CELL DISTRIBUTION WIDTH 12.3 % (10.0-14.5); WHITE BLOOD COUNT 12.4 10^3/uL (4.3-11.0)
[2017-03-29] MEDS ORDERED: VANCOMYCIN INJECTION 1,000 MG in NS (IVPB) 250 ML IV ONE (04:45)
[2017-03-29 04:50] LABS: ALANINE AMINOTRANSFERASE 54 U/L (0-55); ALBUMIN 3.4 GM/DL (3.2-4.5); ANION GAP 11 MMOL/L (5-14); ASPARTATE AMINO TRANSFERASE 45 U/L (5-34); BILIRUBIN,TOTAL 0.6 MG/DL (0.1-1.0); BLOOD UREA NITROGEN 11 MG/DL (7-18); BUN/CREATININE RATIO 14; CALCIUM 8.6 MG/DL (8.5-10.1); CARBON DIOXIDE 25 MMOL/L (21-32); CHLORIDE 103 MMOL/L (98-107); CREATININE SERUM 0.78 MG/DL (0.60-1.30); GFR ESTIMATED > 60; GLUCOSE 117 MG/DL (70-105); SODIUM 139 MMOL/L (135-145); TOTAL PROTEIN 6.5 GM/DL (6.4-8.2); hs C REACTIVE PROTEIN 7.84 MG/DL (0.00-0.50)
[2017-03-29] MEDS ORDERED: ONDANSETRON 4 MG/2 ML (SDV) Z0FRAN ONE (05:04)
[2017-03-29] MEDS ORDERED: ONDANSETRON 4 MG/2 ML (SDV) Z0FRAN IVP ONE (05:15)
[2017-03-29] MEDS ORDERED: KETOROLAC 30 MG/ML VIAL ONE (05:38)
[2017-03-29] MEDS ORDERED: KETOROLAC 30 MG/ML VIAL IVP ONE (05:45)
--- NOTE | 2017-03-29 05:48 | ED General ---
General Chief Complaint: Lower Extremity Stated Complaint: POST OP KNEE REPLACEMENT PAIN Nursing Triage Note: Pt was discharged yesterday post Right knee replacement from [facility], woke up 30 min ago with fluid filled areas on each side of right knee. Nursing Sepsis Screen: No Definite Risk Source of Information: Patient Exam Limitations: No Limitations (ESTEFANIA COSTA MD) History of Present Illness Time Seen by Provider: 04:00 Initial Comments This 61-year-old gentleman presents to the emergency room with complaints of increased right knee pain and development of bullous blistering lesions on either side of his incision after having [facility] replacement [facility] [place] on March 26. He is afebrile. The skin surrounding the bullous lesions is erythematous and tender. These areas are starting to weep and soak through to his compression stockings. (ESTEFANIA COSTA MD) Allergies and Home Medications Allergies Coded Allergies: No Known Drug Allergies (Unverified , 12/27/13) Home Medications Doxycycline Hyclate 100 Mg Tablet, 100 MG PO BID, #20 Prescribed by: ESTEFANIA PINTO on 03/29/17 0552 Levofloxacin 750 Mg Tablet, 750 MG PO DAILY, #5 Prescribed by: ANGELO LYNCH on 03/03/17 1042 Lisinopril 10 Mg Tablet, 10 MG PO DAILY, #30 Prescribed by: ANGELO LYNCH on 03/03/17 1042 Sulfamethoxazole/Trimethoprim 1 Each Tablet, 1 EACH PO BID, #20 Prescribed by: ESTEFANIA PINTO on 03/29/17 0552 Constitutional: no symptoms reported EENTM: no symptoms reported Respiratory: no symptoms reported Cardiovascular: no symptoms reported Gastrointestinal: no symptoms reported Genitourinary: no symptoms reported Musculoskeletal: see HPI Skin: see HPI Psychiatric/Neurological: No Symptoms Reported Hematologic/Lymphatic: No Symptoms Reported Immunological/Allergic: no symptoms reported (ESTEFANIA COSTA MD) Past Uvjospr-Whbmpi-Vynmuo Hx Patient Social History Alcohol Use: Denies Use Recreational Drug Use: No Smoking Status: Current Everyday Smoker Type Used: Cigarettes Former Smoker, Quit: Feb 24, 2017 2nd Hand Smoke Exposure: Yes Recent Foreign Travel: No Contact w/Someone Who Travel: No Recent Infectious Disease Expo: No Recent Hopitalizations: No Physical Abuse: No Sexual Abuse: No Fear: No (ESTEFANIA COSTA MD) Immunizations Up To Date Tetanus Booster (TDap): More than 5yrs (ESTEFANIA COSTA MD) Seasonal Allergies Seasonal Allergies: No (ESTEFANIA COSTA MD) Surgeries History of Surgeries: Yes (HERNIA, r knee) Surgeries: Abdominal, Joint Replacement (right knee) (ESTEFANIA COSTA MD) Respiratory History of Respiratory Disorde: Yes Respiratory Disorders: Pneumonia (ESTEFANIA COSTA MD) Cardiovascular History of Cardiac Disorders: Yes Cardiac Disorders: Hypertension (ESTEFANIA COSTA MD) Neurological History of Neurological Disord: No (ESTEFANIA COSTA MD) Reproductive System Hx Reproductive Disorders: No Sexually Transmitted Disease: No (ESTEFANIA COSTA MD) Genitourinary History of Genitourinary Disor: No (ESTEFANIA COSTA MD) Gastrointestinal History of Gastrointestinal Di: Yes Gastrointestinal Disorders: Hepatitis (ESTEFANIA COSTA MD) Musculoskeletal History of Musculoskeletal Dis: Yes Musculoskeletal Disorders: Arthritis (ESTEFANIA COSTA MD) Endocrine History of Endocrine Disorders: No (ESTEFANIA COSTA MD) HEENT History of HEENT Disorders: No (ESTEFANIA COSTA MD) Cancer History of Cancer: No (ESTEFANIA COSTA MD) Psychosocial History of Psychiatric Problem: No Suicide Risk Score: 1 (ESTEFANIA COSTA MD) Integumentary History of Skin or Integumenta: No (ESTEFANIA COSTA MD) Blood Transfusions History of Blood Disorders: No (ESTEFANIA COSTA MD) Family Medical History Significant Family History: Cancer (ESTEFANIA COSTA MD) Physical Exam Vital Signs Vital Sign - Last 12Hours 03/29/17 04:02 Temp 97.9 Pulse 88 Resp 18 B/P (MAP) 143/94 (110) Pulse Ox 98 O2 Delivery Room Air (DEVI VELA MD) Vital Signs Capillary Refill : Less Than 3 Seconds (ESTEFANIA COSTA MD) General Appearance: WD/WN, Mild Distress HEENT: PERRL/EOMI, Normal ENT Inspection, Pharynx Normal Neck: Normal Inspection Respiratory: Lungs Clear, Normal Breath Sounds, No Accessory Muscle Use, No Respiratory Distress Cardiovascular: Regular Rate, Rhythm, No Edema, No Murmur Extremity: Other (right knee is edematous with a clean and intact dressing. At mid incision on either side of the dressing are large bullous blistering lesions with localized erythema surrounding them. 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 Skin: Warm/Dry, Other (see above) (ESTEFANIA COSTA MD) Focused Exam Evaluation Lactate Level Laboratory Tests 03/29/17 04:20: Lactic Acid Level 1.00 (DEVI VELA MD) Lactic Acid Level Laboratory Tests Test 03/29/17 04:20 Lactic Acid Level 1.00 MMOL/L (0.50-2.00) (DEVI VELA MD) Progress/Results/Core Measures Suspected Sepsis Recent Fever Within 48 Hours: No Infection Criteria Present: Suspected New Infection New/Unexplained Altered Menta: No Sepsis Screen: No Definite Risk Sepsis Diagnosis: SIRS Temperature:98.0 Pulse: 100 Respiratory Rate: 18 Laboratory Tests 03/29/17 04:20: White Blood Count 12.4H Blood Pressure 150 /99 Mean: 116 Laboratory Tests 03/29/17 04:20: Lactic Acid Level 1.00 Laboratory Tests 03/29/17 04:20: Creatinine 0.78, Platelet Count 160, Total Bilirubin 0.6 (ESTEFANIA COSTA MD) Results/Orders Lab Results Laboratory Tests Test 03/29/17 04:20 Range/Units White Blood Count 12.4 H 4.3-11.0 10^3/uL Red Blood Count 4.12 L 4.35-5.85 10^6/uL Hemoglobin 12.5 L 13.3-17.7 G/DL Hematocrit 36 L 40-54 % Mean Corpuscular Volume 88 80-99 FL Mean Corpuscular Hemoglobin 30 25-34 PG Mean Corpuscular Hemoglobin Concent 34 32-36 G/DL Red Cell Distribution Width 12.3 10.0-14.5 % Platelet Count 160 130-400 10^3/uL Mean Platelet Volume 11.3 H 7.4-10.4 FL Neutrophils (%) (Auto) 55 42-75 % Lymphocytes (%) (Auto) 28 12-44 % Monocytes (%) (Auto) 13 H 0-12 % Eosinophils (%) (Auto) 4 0-10 % Basophils (%) (Auto) 0 0-10 % Neutrophils # (Auto) 6.8 1.8-7.8 X 10^3 Lymphocytes # (Auto) 3.5 1.0-4.0 X 10^3 Monocytes # (Auto) 1.6 H 0.0-1.0 X 10^3 Eosinophils # (Auto) 0.4 H 0.0-0.3 10^3/uL Basophils # (Auto) 0.0 0.0-0.1 10^3/uL Sodium Level 139 135-145 MMOL/L Potassium Level 4.0 3.6-5.0 MMOL/L Chloride Level 103 98-107 MMOL/L Carbon Dioxide Level 25 21-32 MMOL/L Anion Gap 11 5-14 MMOL/L Blood Urea Nitrogen 11 7-18 MG/DL Creatinine 0.78 0.60-1.30 MG/DL Estimat Glomerular Filtration Rate > 60 BUN/Creatinine Ratio 14 Glucose Level 117 H 70-105 MG/DL Lactic Acid Level 1.00 0.50-2.00 MMOL/L Calcium Level 8.6 8.5-10.1 MG/DL Total Bilirubin 0.6 0.1-1.0 MG/DL Aspartate Amino Transf (AST/SGOT) 45 H 5-34 U/L Alanine Aminotransferase (ALT/SGPT) 54 0-55 U/L Alkaline Phosphatase 58 40-136 U/L C-Reactive Protein High Sensitivity 7.84 H 0.00-0.50 MG/DL Total Protein 6.5 6.4-8.2 GM/DL Albumin 3.4 3.2-4.5 GM/DL (DEVI VELA MD) Medications Given in ED Current Medications Medications Dose Ordered Sig/Delma Route Start Time Stop Time Status Last Admin Dose Admin Ketorolac Tromethamine 30 mg ONCE ONCE IVP 03/29/17 05:45 03/29/17 05:46 DC 03/29/17 05:41 30 MG Morphine Sulfate 5 mg ONCE ONCE IVP 03/29/17 04:30 03/29/17 04:31 DC 03/29/17 04:26 5 MG Morphine Sulfate 8 mg ONCE ONCE IVP 03/29/17 05:15 03/29/17 05:16 DC 03/29/17 05:08 8 MG Ondansetron HCl 8 mg ONCE ONCE IVP 03/29/17 05:15 03/29/17 05:16 DC 03/29/17 05:07 8 MG Piperacillin Sod/ Tazobactam Sod 4.5 gm/Sodium Chloride 100 ml @ 200 mls/hr ONCE ONCE IV 03/29/17 04:30 03/29/17 04:59 DC 03/29/17 05:10 200 MLS/HR Vancomycin HCl 1000 mg/Sodium Chloride 250 ml @ 250 mls/hr ONCE ONCE IV 03/29/17 04:45 03/29/17 05:44 DC 03/29/17 05:41 250 MLS/HR (DEVI VELA MD) Vital Signs/I&O Vital Sign - Last 12Hours 03/29/17 03/29/17 03/29/17 03/29/17 04:02 04:30 05:00 07:49 Temp 97.9 98.0 98.0 98.0 Pulse 88 95 100 Resp 18 20 18 B/P (MAP) 143/94 (110) 145/103 150/99 Pulse Ox 98 100 99 O2 Delivery Room Air Room Air (DEVI VELA MD) Vital Signs/I&O Capillary Refill : Less Than 3 Seconds (ESTEFANIA COSTA MD) Blood Pressure Mean: 116 Progress Note #1: Time: 05:05 Progress Note Labs were obtained. Patient was treated with morphine for pain. Antibiotics have been ordered including Zosyn and vancomycin for initial treatment of suspected postoperative cellulitis. The bolus blisters were cleaned with chlorhexidine and then ruptured with a hypodermic needle. Cultures were collected from each lesion. Patient had rebound pain and associated nausea. More morphine and a dose of Zofran were ordered. I spoke with Dr. Tse at the [facility] in the emergency room. She will page out the orthopedist on- call for further discussion. Progress Note #2: Time: 05:30 Progress Note Case was reviewed with Dr. 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 He advised dismissing with oral antibiotic therapy after completion of treatment in the emergency room. They will follow-up with the patient by phone with anticipation to have follow-up in the clinic early next week. Progress Note #3: Time: 06:[address] Santos from the [facility] called back. He requested a venous Doppler of the right leg after discussion with his attending physician. This was ordered and care of this patient was transitioned to Dr. Vela at this time. (ESTEFANIA COSTA MD) Diagnostic Imaging Diagonstic Imaging: Ultrasound Plain Films/CT/US/NM/MRI: leg Comments NAME: PA KYLE [facility] REC#: [id number] PT STATUS: REG ER : 1955 PHYSICIAN: ESTEFANIA COSTA MD ADMIT DATE: 03/29/17/ER Signed Date of Exam: 03/29/17 US VENOUS LOWER EXT RT PROCEDURE: US right lower extremity venous. TECHNIQUE: Multiple real-time grayscale images were obtained over the right lower extremity in various projections. Additional duplex Doppler and color Doppler images were also obtained. INDICATION: Right leg swelling status post knee arthroplasty. The veins were compressible and have normal spontaneous and augmented flow. IMPRESSION: Negative venous Doppler, right leg. Dictated by: Dictated on workstation # [id number] Dict: 03/29/17 0747 Trans: 03/29/17 0754 Interpreted by: DANITZA CALHOUN MD Electronically signed by: DANITZA CALHOUN MD 03/29/17 0754 (ESTEFANIA COSTA MD) Departure Impression Impression: Primary Impression: Cellulitis Qualified Codes: L03.115 - Cellulitis of right lower limb Additional Impression: Postoperative pain Disposition: 01 HOME, SELF-CARE Condition: Improved Departure-Patient Inst. Decision time for Depature: 08:07 (DEVI VELA MD) Referrals: NO,LOCAL PHYSICIAN (PCP/Family) Primary Care Physician Patient Instructions: Cellulitis (Skin Infection), Adult (DC) Add. Discharge Instructions: Drink plenty of clear liquids and complete your antibiotics as prescribed. Contact your orthopedist's office later today for follow-up instructions. Return to the emergency room if you have worsening symptoms including fevers over 100. Otherwise continue all postoperative instructions as provided by your surgeon. All discharge instructions reviewed with patient and/or family. Voiced understanding. 0809. Sonogram shows no evidence of DVT. Accordingly you are to take the medications as prescribed by Dr. Pinto and contact your [facility] surgeon for follow-up instructions Scripts Sulfamethoxazole/Trimethoprim (Bactrim Ds Tablet) 1 Each Tablet 1 EACH PO BID, #20 TAB Prov: ETSEFANIA COSTA MD 03/29/17 Doxycycline Hyclate (Doxycycline Hyclate) 100 Mg Tablet 100 MG PO BID, #20 TAB Prov: ESTEFANIA COSTA MD 03/29/17 ESTEFANIA COSTA MD Mar 29, 2017 05:48 DEVI VELA MD Mar 29, 2017 08:08
[2017-03-29] MEDS ORDERED: DOXY100T2 PO (05:52)
[2017-03-29] MEDS ORDERED: SULF1TAB35 PO (05:52)
--- NOTE | 2017-03-29 07:51 | Diagnostic Imaging Report ---
PROCEDURE: US right lower extremity venous. TECHNIQUE: Multiple real-time grayscale images were obtained over the right lower extremity in various projections. Additional duplex Doppler and color Doppler images were also obtained. INDICATION: Right leg swelling status post knee arthroplasty. The veins were compressible and have normal spontaneous and augmented flow. IMPRESSION: Negative venous Doppler, right leg. Dictated by: Dictated on workstation # [id number]
[2017-03-29] MEDS ORDERED: HYDROcodone/APAP 5 MG/325 MG (LORTAB) TAB ONE (08:05)
[2017-03-29 15:31] VITALS: BP 136/82
== END 2017-03-29 09:07 | disposition home or self-care (01) ==
LOC: EDUNIT# 03:55 → ER 03:57
DX: L03.115 Cellulitis of right lower limb (principal); G89.18 Other acute postprocedural pain; M25.561 Pain in right knee; F17.210 Nicotine dependence, cigarettes, uncomplicated; I10 Essential (primary) hypertension; Z96.651 Presence of right artificial knee joint; Z87.19 Personal history of other diseases of the digestive system
CPT/HCPCS: 36415; 80053; 83605; 85025; 86141; 87040; 87070; 87077; 87186; 87205; 96365; 96367; 96375; 96376

== ENCOUNTER 2017-04-09 01:21 | Emergency (ER) | payer OTHER ==
[~2017-04-09] VITALS: Ht 177.8 cm; Wt 72.6 kg
[~2017-04-09 01:21] MED LIST changes: +DOXY100T2 PO; +SULF1TAB35 PO
[2017-04-09] MEDS ORDERED: fentaNYL INJECTION 100 MCG/2 ML AMP ONE (01:26)
[2017-04-09] MEDS ORDERED: ONDANSETRON 4 MG/2 ML (SDV) Z0FRAN ONE (01:27)
--- OUTSIDE RECORDS SUMMARY | 2017-04-09 01:27 | XMS REPORT | Continuity of Care Document ---
Author Author [facility] Organization [facility] Address Unknown Phone Unavailable Allergies Active Description Code Type Severity Reaction Onset Reported/Identified Relationship to Patient Clinical Status Yes No Known Drug Allergies [id number] Drug Allergy Unknown N/A 12/27/2013 Medications There [...] BRAWL 12/27/2013 DANITZA ROBBINS MD Ot V06.1 [id number], COMBINED [ 11/28/2015 SHELLIE SOL Ot M25.561 [...] NRG Blood erythrocyte morphology finding identification NORMAL [facility] Comprehensive metabolic panel - 02/26/17 19:30 Serum [...] INFLUENZA A AND B ANTIGENS BY [facility] PT panel in platelet poor plasma by [...] - 03/01/17 18:17 Bacterial blood culture NG [facility] Influenza virus A and B antigen detection - 03/01/17 18:23 FLU RESULT NEGATIVE FOR INFLUENZA A AND B ANTIGENS BY [facility] Bacterial blood culture - 03/01/17 18:32 Bacterial blood culture NG [facility] Complete urinalysis with reflex to culture - [...] 03/02/17 09:19 Streptococcus pneumoniae antigen detection Negative [facility] Complete blood count (CBC) with automated white [...] plasma calcium measurement (mass/volume) 8.8 mg/dL 8.5-10.1 Gram stain microscopy - 03/29/17 04:15 GRAM STAIN RESULT FEW WBC'S, NO BACTERIA OBSERVED NRG Bacteria identification in wound by culture - 03/29/17 04:15 Bacteria identification in wound by culture NG NRG Gram stain microscopy - 03/29/17 04:15 GRAM STAIN RESULT FEW WBC'S, NO BACTERIA OBSERVED NRG Bacteria identification in wound by culture - 03/29/17 04:15 Bacteria identification in wound by culture [id number] NRG FREE TEXT EXTERNAL (ONE COLONY ISOLATED) NRG QUANTITY OF GROWTH Scant Growth NRG FREE TEXT ENTRY 2 SENSITIVITY REPORTED 04/01 12:35 NRG Bacterial susceptibility panel - 03/29/17 04:15 Oxacillin susceptibility test by minimum inhibitory concentration < = NRG Gentamicin susceptibility test by minimum inhibitory concentration < = NRG Clindamycin susceptibility test by minimum inhibitory concentration <= NRG Erythromycin susceptibility test by minimum inhibitory concentration >= NRG Trimethoprim/sulfamethoxazole susceptibility test by minimum inhibitoryconcentration S NRG Vancomycin susceptibility test by minimum inhibitory concentration S NRG Levofloxacin susceptibility test by minimum inhibitory concentration <= NRG Rifampin susceptibility test by minimum inhibitory concentration <= NRG Tetracycline susceptibility test by minimum inhibitory concentration <= NRG Complete blood count (CBC) with automated white blood cell (WBC) differential - 03/29/17 04:20 Blood leukocytes automated count (number/volume) 12.4 10*3/uL 4.3-11.0 Blood erythrocytes automated count (number/volume) 4.12 10*6/uL 4.35-5.85 Venous blood hemoglobin measurement (mass/volume) 12.5 g/dL 13.3-17.7 Blood hematocrit (volume fraction) 36 % 40-54 Automated erythrocyte mean corpuscular volume 88 [foz_us] 80-99 Automated erythrocyte mean corpuscular hemoglobin (mass per erythrocyte) 30 pg 25-34 Automated erythrocyte mean corpuscular hemoglobin concentration measurement ( mass/volume) 34 g/dL 32-36 Automated erythrocyte distribution width ratio 12.3 % 10.0-14.5 Automated blood platelet count (count/volume) 160 10*3/uL 130-400 Automated blood platelet mean volume measurement 11.3 [foz_us] 7.4-10.4 Automated blood neutrophils/100 leukocytes 55 % 42-75 Automated blood lymphocytes/100 leukocytes 28 % 12-44 Blood monocytes/100 leukocytes 13 % 0-12 Automated blood eosinophils/100 leukocytes 4 % 0-10 Automated blood basophils/100 leukocytes 0 % 0-10 Blood neutrophils automated count (number/volume) 6.8 10*3 1.8-7.8 Blood lymphocytes automated count (number/volume) 3.5 10*3 1.0-4.0 Blood monocytes automated count (number/volume) 1.6 10*3 0.0-1.0 Automated eosinophil count 0.4 10*3/uL 0.0-0.3 Automated blood basophil count (count/volume) 0.0 10*3/uL 0.0-0.1 Blood lactic acid measurement (moles/volume) - 03/29/17 04:20 Blood lactic acid measurement (moles/volume) 1.00 mmol/L 0.50-2.00 Comprehensive metabolic panel - 03/29/17 04:20 Serum or plasma sodium measurement (moles/volume) 139 mmol/L 135-145 Serum or plasma potassium measurement (moles/volume) 4.0 mmol/L 3.6-5.0 Serum or plasma chloride measurement (moles/volume) 103 mmol/L 98-107 Carbon dioxide 25 mmol/L 21-32 Serum or plasma anion gap determination (moles/volume) 11 mmol/L 5-14 Serum or plasma urea nitrogen measurement (mass/volume) 11 mg/dL 7-18 Serum or plasma creatinine measurement (mass/volume) 0.78 mg/dL 0.60-1.30 Serum or plasma urea nitrogen/creatinine mass ratio 14 NRG Serum or plasma creatinine measurement with calculation of estimated glomerular filtration rate > NRG Serum or plasma glucose measurement (mass/volume) 117 mg/dL 70-105 Serum or plasma calcium measurement (mass/volume) 8.6 mg/dL 8.5-10.1 Serum or plasma total bilirubin measurement (mass/volume) 0.6 mg/dL 0.1-1.0 Serum or plasma alkaline phosphatase measurement (enzymatic activity/volume) 58 U/L 40-136 Serum or plasma aspartate aminotransferase measurement (enzymatic activity/ volume) 45 U/L 5-34 Serum or plasma alanine aminotransferase measurement (enzymatic activity/volume ) 54 U/L 0-55 Serum or plasma protein measurement (mass/volume) 6.5 g/dL 6.4-8.2 Serum or plasma albumin measurement (mass/volume) 3.4 g/dL 3.2-4.5 Serum or plasma C reactive protein measurement (mass/volume) - 03/29/17 04:20 Serum or plasma C reactive protein measurement (mass/volume) 7.84 mg /dL 0.00-0.50 Bacterial blood culture - 03/29/17 04:20 Bacterial blood culture NG NRG Bacterial blood culture - 03/29/17 05:23 Bacterial blood culture NG NRG Encounters ACCT No. Visit Date/Time Discharge Status Pt. Type Provider Facility Loc./Unit Complaint [id number] 03/01/2017 19:30:00 03/04/2017 14:00:00 DIS Inpatient SYED PEREZ, ANGELO Coronel [facility] 4TH BILATERAL PNEUMONIA [id number] 02/26/2017 19:06:00 02/26/2017 21:29:00 DIS Emergency SANDOVAL HUYNH MD [facility] ER FEVER,CHILLS [id number] 02/23/2017 04:59:00 02/23/2017 05:36:00 DIS Emergency MIKE RAM DO [facility] ER FEVER [id number] 11/28/2015 08:20:00 11/28/2015 15:39:00 DIS Outpatient SHELLIE SOL [facility] REHAB R KNEE PAIN [id number] 10/14/2015 16:29:00 11/03/2015 14:17:00 DIS Outpatient ALYSSIA PEREZ PHD, MAC [facility] REHAB L SHOULDER PAIN [id number] 12/27/2013 01:28:00 12/27/2013 03:45:00 DIS Emergency DANITZA ROBBINS MD [facility] ER [id number] 03/29/2017 04:35:00 Document Registration
[2017-04-09] MEDS ORDERED: fentaNYL INJECTION 100 MCG/2 ML AMP IVP ONE ×2 (01:30→01:45)
--- NOTE | 2017-04-09 01:30 | ED Lower Extremity ---
General Stated Complaint: POST RT KNEE REPLACEMENT SURGERY PAIN Source: patient Exam Limitations: no limitations History of Present Illness Time seen by provider: 01:23 Initial Comments Patient presents to ER by private conveyance with a significant other a chief complaint that a half an hour ago he started having severe throbbing pain in his right knee. He did not hit nor did he fall and nor has he had any weakness in it. 2 weeks ago he did have a complete knee replacement. He wasn't having any pain prior to 30 minutes ago and there was no inciting incident. Since that time he is taken to 7.5 hydrocodone's that did nothing for his pain. Patient states that he is still taking the antibiotics he did get his appointment [facility] after his ER visit 10 days ago and was told that the blisters were from stress blisters due to the stretching of the skin and it did not seem to be cellulitis but they told him to finish the antibiotics anyways. His dressing was changed last , 5 days ago and the plan is to go back tomorrow to have the dressing changed again at the [facility] in [place], [place]. The patient says he was participating in physical therapy 3 times a week and getting a little pain out of that and having a baseline of 4 out of 10 pain most the time but tonight so the pipes in his house frozen he was bailing water out of his bathtub as it would not drain and taking it into the kitchen and when he went to sit down to rest after that he started having tremendous 10 out of 10 pain in his right knee. He says he feels like it is fractured. Allergies and Home Medications Allergies Coded Allergies: No Known Drug Allergies (Unverified , 12/27/13) Home Medications Doxycycline Hyclate 100 Mg Tablet, 100 MG PO BID, #20 Prescribed by: ESTEFANIA SCHAEFER on 03/29/17 0552 Levofloxacin 750 Mg Tablet, 750 MG PO DAILY, #5 Prescribed by: ANGELO LYNCH on 03/03/17 1042 Lisinopril 10 Mg Tablet, 10 MG PO DAILY, #30 Prescribed by: ANGELO LYNCH on 03/03/17 1042 Sulfamethoxazole/Trimethoprim 1 Each Tablet, 1 EACH PO BID, #20 Prescribed by: ESTEFANIA SCHAEFER on 03/29/17 0552 Constitutional: No chills, No diaphoresis, No fever, No malaise EENTM: No ear discharge, No ear pain Respiratory: No cough, No phlegm, No short of breath Cardiovascular: No chest pain, No edema, No palpitations Gastrointestinal: No abdominal pain, No constipation, No diarrhea, No nausea, No vomiting Genitourinary: No discharge, No dysuria Musculoskeletal: see HPI, joint pain, joint swelling Skin: No pruritus, No rash Past Omyvaoo-Ergeew-Zxupml Hx Patient Social History Smoking Status: Current Everyday Smoker Type Used: Cigarettes Former Smoker, Quit: Feb 24, 2017 2nd Hand Smoke Exposure: Yes Recent Foreign Travel: No Contact w/Someone Who Travel: No Recent Hopitalizations: No Immunizations Up To Date Tetanus Booster (TDap): More than 5yrs Seasonal Allergies Seasonal Allergies: No Surgeries History of Surgeries: Yes (HERNIA, r knee) Surgeries: Abdominal, Joint Replacement Respiratory History of Respiratory Disorde: Yes Respiratory Disorders: Pneumonia Cardiovascular History of Cardiac Disorders: Yes Cardiac Disorders: Hypertension Neurological History of Neurological Disord: No Reproductive System Hx Reproductive Disorders: No Sexually Transmitted Disease: No Genitourinary History of Genitourinary Disor: No Gastrointestinal History of Gastrointestinal Di: Yes Gastrointestinal Disorders: Hepatitis Musculoskeletal History of Musculoskeletal Dis: Yes Musculoskeletal Disorders: Arthritis Endocrine History of Endocrine Disorders: No HEENT History of HEENT Disorders: No Cancer History of Cancer: No Psychosocial History of Psychiatric Problem: No Integumentary History of Skin or Integumenta: No Blood Transfusions History of Blood Disorders: No Family Medical History Significant Family History: Cancer Physical Exam Vital Signs Vital Sign - Last 12Hours 04/09/17 01:21 Temp 96.8 Pulse 100 Resp 18 B/P (MAP) 145/120 (128) Pulse Ox 98 Capillary Refill : General Appearance: WD/WN, moderate distress HEENT: PERRL/EOMI, pharynx normal Neck: non-tender, supple, normal inspection Cardiovascular: normal peripheral pulses, regular rate, rhythm, no edema Respiratory: chest non-tender, normal breath sounds, no respiratory distress, no accessory muscle use Gastrointestinal: normal bowel sounds, non tender, soft Hips: bilateral hip non-tender, bilateral hip normal inspection, bilateral hip normal range of motion, bilateral hip no evidence of injury Legs: bilateral leg non-tender, bilateral leg normal inspection, bilateral leg normal range of motion, bilateral leg no evidence of injury Knees: left knee non-tender, left knee normal inspection, left knee normal range of motion, left knee no evidence of injury, right knee bone tenderness, right knee joint effusion, right knee pain, right knee soft tissue tenderness, right knee swelling, right knee other (erythema with healing eschar on the medial side of his right knee that apparently used to be blisters.) Ankles: bilateral ankle non-tender, bilateral ankle normal inspection, bilateral ankle normal range of motion, bilateral ankle no evidence of injury Feet: bilateral foot non-tender, bilateral foot normal inspection, bilateral foot normal range of motion, bilateral foot no evidence of injury Neurologic/Tendon: normal sensation, normal motor functions, responds to pain Neurologic/Psychiatric: alert, oriented x 3, other (very anxious and upset) Skin: normal color, warm/dry Progress/Results/Core Measures Results/Orders Lab Results Laboratory Tests Test 04/09/17 01:20 04/09/17 01:30 Range/Units White Blood Count 12.0 H 4.3-11.0 10^3/uL Red Blood Count 3.77 L 4.35-5.85 10^6/uL Hemoglobin 11.0 L 13.3-17.7 G/DL Hematocrit 33 L 40-54 % Mean Corpuscular Volume 89 80-99 FL Mean Corpuscular Hemoglobin 29 25-34 PG Mean Corpuscular Hemoglobin Concent 33 32-36 G/DL Red Cell Distribution Width 12.3 10.0-14.5 % Platelet Count 604 H 130-400 10^3/uL Mean Platelet Volume 9.0 7.4-10.4 FL Neutrophils (%) (Auto) 53 42-75 % Lymphocytes (%) (Auto) 36 12-44 % Monocytes (%) (Auto) 8 0-12 % Eosinophils (%) (Auto) 3 0-10 % Basophils (%) (Auto) 0 0-10 % Neutrophils # (Auto) 6.3 1.8-7.8 X 10^3 Lymphocytes # (Auto) 4.3 H 1.0-4.0 X 10^3 Monocytes # (Auto) 1.0 0.0-1.0 X 10^3 Eosinophils # (Auto) 0.4 H 0.0-0.3 10^3/uL Basophils # (Auto) 0.0 0.0-0.1 10^3/uL Sodium Level 138 135-145 MMOL/L Potassium Level 3.3 L 3.6-5.0 MMOL/L Chloride Level 100 98-107 MMOL/L Carbon Dioxide Level 23 21-32 MMOL/L Anion Gap 15 H 5-14 MMOL/L Blood Urea Nitrogen 15 7-18 MG/DL Creatinine 0.93 0.60-1.30 MG/DL Estimat Glomerular Filtration Rate > 60 BUN/Creatinine Ratio 16 Glucose Level 125 H 70-105 MG/DL Calcium Level 9.2 8.5-10.1 MG/DL Total Bilirubin 1.0 0.1-1.0 MG/DL Aspartate Amino Transf (AST/SGOT) 43 H 5-34 U/L Alanine Aminotransferase (ALT/SGPT) 45 0-55 U/L Alkaline Phosphatase 78 40-136 U/L C-Reactive Protein High Sensitivity 1.38 H 0.00-0.50 MG/DL Total Protein 7.3 6.4-8.2 GM/DL Albumin 3.6 3.2-4.5 GM/DL Urine Color AJ H Urine Clarity CLEAR Urine pH 6 5-9 Urine Specific [place] 1.025 H 1.016-1.022 Urine Protein 2+ H NEGATIVE Urine Glucose (UA) NEGATIVE NEGATIVE Urine Ketones NEGATIVE NEGATIVE Urine Nitrite NEGATIVE NEGATIVE Urine Bilirubin 1+ H NEGATIVE Urine Urobilinogen 12 H NORMAL MG/DL Urine Leukocyte Esterase 1+ H NEGATIVE Urine RBC (Auto) 1+ H NEGATIVE Urine RBC RARE /HPF Urine WBC RARE /HPF Urine Squamous Epithelial Cells 2-5 /HPF Urine Crystals NONE /LPF Urine Bacteria NEGATIVE /HPF Urine Casts NONE /LPF Urine Mucus NEGATIVE /LPF Urine Culture Indicated NO My Orders Orders - SANDOVAL HUYNH Saline Lock/Iv-Start (04/09/17 01:25) Fentanyl Injection (Sublimaze Injection (04/09/17 01:30) Cbc With Automated Diff (04/09/17 01:25) Comprehensive Metabolic Panel (04/09/17 01:25) Hs C Reactive Protein (04/09/17 01:25) Ua Culture If Indicated (04/09/17 01:25) Blood Culture (04/09/17 01:25) Fentanyl Injection (Sublimaze Injection (04/09/17 01:26) Ondansetron Injection (Zofran Injectio (04/09/17 01:27) Fentanyl Injection (Sublimaze Injection (04/09/17 01:45) Knee, Right, 2 Views (04/09/17 01:42) Ondansetron Injection (Zofran Injectio (04/09/17 01:45) Ketorolac Injection (Toradol Injection) (04/09/17 01:45) Ketorolac Injection (Toradol Injection) (04/09/17 01:43) Medications Given in ED Current Medications Medications Dose Ordered Sig/Delma Route Start Time Stop Time Status Last Admin Dose Admin Fentanyl Citrate 100 mcg ONCE ONCE IVP 04/09/17 01:30 04/09/17 01:31 DC 04/09/17 01:32 100 MCG Fentanyl Citrate 100 mcg ONCE ONCE IVP 04/09/17 01:45 04/09/17 01:46 DC 04/09/17 01:46 100 MCG Ketorolac Tromethamine 15 mg ONCE ONCE IVP 04/09/17 01:45 04/09/17 01:46 DC 04/09/17 01:46 15 MG Vital Signs/I&O Vital Sign - Last 12Hours 04/09/17 01:21 Temp 96.8 Pulse 100 Resp 18 B/P (MAP) 145/120 (128) Pulse Ox 98 Progress Note #1: Time: 01:33 Progress Note Reviewed records from 10 days ago and the patient was seen here in the ER for bullae seen on either side of his incision and thought to be possible cellulitis. Reviewed the consult with the on-call orthopedics from the [facility] in [place], [place]. They recommended an ultrasound Doppler of the right lower extremity as well as doxycycline and Bactrim and follow-up in the clinic. The ultrasound was normal and the patient doesn't take any antibiotics correctly. With such a rapid onset of pain and only a mild elevation of the white count a fracture would be the most likely differential. We will obtain x- ray of the knee. Progress Note #2: Time: 02:07 Progress Note Hemoglobin is down milligram per deciliter from 10 days ago which was directly after his surgery and this may explain why. It's not critical. White count is only mildly elevated. Electrolytes are mildly out of range but nothing critical. AST is elevated which would be consistent with his history of hepatitis C. C-reactive protein is very mildly elevated which is nonspecific inflammation and may be due to his hep C her recent surgery but does not seem to indicate a septic knee. Progress Note #3: Time: 02:59 Progress Note Patient's pain is under control however he only has a few the 7.5 mg tablets left and he is out of the 5 mg hydrocodone he was initially written at the time of the surgery. He says he thinks he would like something a little stronger than 7.5 mg hydrocodone. He's had no nausea with the pain medicine. I have explained to him that we'll give him some 10 mg hydrocodone to tide him over to get his surgeon tomorrow. Diagnostic Imaging Diagonstic Imaging: Xray Plain Films/CT/US/NM/MRI: knee (right) Comments No prior x-ray to compare to but there is a small chip in the anterior portion of the tibia below the prostheses that may or may not be acute. Some soft tissue swelling seen. Prostheses seems to be in good place. Reviewed: Reviewed by Me Consults Consults : Consults Notes Dr. Scott, [facility] emergency room discussed case lab imaging findings and findings and she feels it would be okay for the patient is to follow-up in the morning with orthopedic surgery by phone. She also recommends that if he cannot obtain transportation he should also speak with social sciences lecturer at the [facility] to help him with transportation. 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 Decision time for Depature: 03:01 Referrals: NO,LOCAL PHYSICIAN (PCP/Family) Primary Care Physician Patient Instructions: Knee Pain (DC), Postop Total Knee Replacement Exercises Lying Down, Postop Total Knee Replacement Exercises Seated or Standing Add. Discharge Instructions: Please review the handouts for knee exercises after having a knee replacement surgery. Use the pain medicine prior to performing physical therapy. Try and stay ahead of your pain as this will result in less usage of the pain medicine. This morning please call your orthopedic surgeon's office at the [facility] and discussed the findings as well as if you need to speak with social sciences lecturer to get a ride please talk to them. Please follow up with your orthopedic surgeon tomorrow as planned. If you begin to have a fever above 100.3 or drainage from your knee wound then you should return to the ER. Complete your antibiotics. Scripts Hydrocodone/Acetaminophen (Hydrocodon-Acetaminophn 10-325) 1 Each Tablet 1 EACH PO Q4H Y for PAIN, #15 TAB 0 Refills Prov: SANDOVAL HUYNH 04/09/17 SANDOVAL HUYNH Apr 09, 2017 01:30
[2017-04-09 01:42] LABS: CLARITY,URINE CLEAR; COLOR,URINE AMBER; GLUCOSE, URINE (UA) NEGATIVE (NEGATIVE); KETONES,URINE NEGATIVE (NEGATIVE); LEUKOCYTE ESTERASE ,URINE 1+ (NEGATIVE); NITRITE,URINE NEGATIVE (NEGATIVE); PH,URINE 6 (5-9); PROTEIN,URINE 2+ (NEGATIVE); UROBILINOGEN,URINE 12 MG/DL (NORMAL)
[2017-04-09 01:43] LABS: BASOPHILS % (AUTO) 0 % (0-10); EOSINOPHILS # (AUTO) 0.4 10^3/uL (0.0-0.3); EOSINOPHILS % (AUTO) 3 % (0-10); HEMATOCRIT 33 % (40-54); LYMPHOCYTES # (AUTO) 4.3 X 10^3 (1.0-4.0); LYMPHOCYTES % (AUTO) 36 % (12-44); MEAN CORPUSCULAR HEMOGLOBIN 29 PG (25-34); MEAN CORPUSCULAR HGB CONC 33 G/DL (32-36); MEAN CORPUSCULAR VOLUME 89 FL (80-99); MONOCYTES % (AUTO) 8 % (0-12); NEUTROPHILS # (AUTO) 6.3 X 10^3 (1.8-7.8); NEUTROPHILS % (AUTO) 53 % (42-75); PLATELET COUNT 604 10^3/uL (130-400); RED BLOOD COUNT 3.77 10^6/uL (4.35-5.85); RED CELL DISTRIBUTION WIDTH 12.3 % (10.0-14.5)
[2017-04-09] MEDS ORDERED: KETOROLAC 30 MG/ML VIAL ONE (01:43)
[2017-04-09] MEDS ORDERED: KETOROLAC 30 MG/ML VIAL IVP ONE (01:45)
[2017-04-09] MEDS ORDERED: ONDANSETRON 4 MG/2 ML (SDV) Z0FRAN IVP ONE (01:45)
[2017-04-09 01:51] LABS: BILIRUBIN,URINE 1+ (NEGATIVE)
[2017-04-09 01:52] LABS: BACTERIA,URINE NEGATIVE /HPF; RBC,URINE RARE /HPF; WBC,URINE RARE /HPF
[2017-04-09 02:02] LABS: ALANINE AMINOTRANSFERASE 45 U/L (0-55); ALBUMIN 3.6 GM/DL (3.2-4.5); ALKALINE PHOSPHATASE 78 U/L (40-136); BUN/CREATININE RATIO 16; CALCIUM 9.2 MG/DL (8.5-10.1); CARBON DIOXIDE 23 MMOL/L (21-32); CHLORIDE 100 MMOL/L (98-107); CREATININE SERUM 0.93 MG/DL (0.60-1.30); GFR ESTIMATED > 60; GLUCOSE 125 MG/DL (70-105); POTASSIUM 3.3 MMOL/L (3.6-5.0); SODIUM 138 MMOL/L (135-145); TOTAL PROTEIN 7.3 GM/DL (6.4-8.2)
[2017-04-09] MEDS ORDERED: HYDR-3820 PO (03:05)
[2017-04-09 03:15] VITALS: BP 124/70
--- NOTE | 2017-04-09 07:45 | Diagnostic Imaging Report ---
INDICATION: Right knee pain COMPARISON: None FINDINGS: Two views of the right knee demonstrate well-seated arthroplasty without fracture. There is soft tissue swelling overlying the distal anterior thigh and patella. Small suprapatellar joint effusion is present. IMPRESSION: 1. Well-seated right knee arthroplasty 2. Soft tissue swelling with small effusion. Dictated by: Dictated on workstation # [id number]
== END 2017-04-09 03:15 | disposition home or self-care (01) ==
LOC: EDUNIT# 01:21 → ER 01:23
DX: G89.18 Other acute postprocedural pain (principal); M25.561 Pain in right knee; Z96.651 Presence of right artificial knee joint; Z87.19 Personal history of other diseases of the digestive system; Z87.09 Personal history of other diseases of the respiratory system
CPT/HCPCS: 36415; 73560; 80053; 81000; 85025; 86141; 87040

== ENCOUNTER 2017-06-07 12:10 | Emergency (ER) | payer OTHER | END 2017-06-07 12:19 | disposition left against medical advice (07) | LOC: EDUNIT# 12:10 → ER 12:12 | DX: M79.604 Pain in right leg (principal) ==

== ENCOUNTER → 2017-06-07 | Outpatient (CLI) | payer OTHER ==
[~2017-06-07] MED LIST changes: +HYDR-3820 PO
--- NOTE | 2017-06-10 13:11 | RADIOLOGY REPORT ---
NAME: [facility] REC#: [id number] PT STATUS: REG CLI : 1955 PHYSICIAN: KARI PASTOR ADMIT DATE: 06/07/17/RAD CORRECTED Signed Date of Exam:06/07/17 US VENOUS LOWER EXT RT PROCEDURE: US right lower extremity venous. TECHNIQUE: Multiple real-time grayscale images were obtained over the right lower extremity in various projections. Additional duplex Doppler and color Doppler images were also obtained. INDICATION: Right leg pain after recent knee replacement. FINDINGS: The right common femoral, superficial femoral and popliteal veins demonstrate normal response to compression, augmentation, and Valsalva. There are no right lower extremity fluid collections or masses. IMPRESSION: No evidence of deep vein thrombosis in the right lower extremity. Dictated by: Dictated on workstation # [id number] Dict: 06/07/17 1442 Trans: 06/07/17 1531 [id number] Interpreted by: RD JUAREZ MD Electronically signed by: RD JUAREZ MD 06/07/17 1531 [facility]
== END ==
LOC: RAD 13:57
PROVIDERS: ATTEND Orthopaedic Surgery
DX: M79.604 Pain in right leg (principal); Z96.651 Presence of right artificial knee joint